=== PATIENT | female | born 1960 | race Caucasian/White ===

== ENCOUNTER 2017-10-08 11:12 | Inpatient (IN) | payer OTHER ==
[2017-10-08 13:51] LABS: ADD MAN DIFF? NO
[2017-10-08 13:55] LABS: WHITE BLOOD COUNT 4.2 10^3/ul (4.8-10.8)
[2017-10-08 13:55] LABS: BASOPHILS % 0.2 % (0.0-2.0); EOSINOPHILS # 0.2 10^3/ul (0.0-0.5); HEMATOCRIT 30.3 % (37.0-47.0); HEMOGLOBIN 9.9 g/dl (12.0-16.0); LYMPHOCYTES # 0.8 10^3/ul (0.8-2.9); LYMPHOCYTES % 18.9 % (15.0-51.0); MEAN CORPUSCULAR HGB CONC 32.7 g/dl (32.0-37.0); MEAN CORPUSCULAR VOLUME 104.1 fl (82.0-101.0); MEAN PLATELET VOLUME 10.9 fl (7.4-10.4); MONOCYTE # 0.5 10^3/ul (0.3-0.9); MONOCYTES % 10.6 % (0.0-11.0); NEUTROPHIL # 2.8 10^3/ul (1.6-7.5); NEUTROPHILS % 65.8 % (39.0-77.0); PLATELET COUNT 203 10^3/UL (140-415); RED BLOOD COUNT 2.91 10^6/ul (4.20-5.40); RED CELL DISTRIBUTION WIDTH 14.6 % (11.5-14.5)
[2017-10-08] MEDS: ONDANSETRON 4 MG INJ IV (13:59)
[2017-10-08] MEDS: PIPER-TAZO 3.375 GM IV (PMX) 100 ML IVPB (13:59)
[2017-10-08] MEDS: ACETAMINOPHEN 325 MG TAB PO (13:59)
[2017-10-08] MEDS ORDERED: ONDANSETRON 4 MG INJ IV (14:00)
[2017-10-08] MEDS: morphine 4 MG/ML VIAL IV (14:01)
[2017-10-08] MEDS: INSULIN LISPRO 100 UNIT/ML VIAL SC (14:06)
[2017-10-08 14:14] LABS: ALANINE AMINOTRANSFERASE 25 IU/L (13-69); ALBUMIN 3.6 g/dl (3.3-4.9); ALBUMIN/GLOBULIN RATIO 1.33; ALKALINE PHOSPHATASE 104 IU/L (42-121); ANION GAP 19 (8-16); ASPARTATE AMINO TRANSFERASE 21 IU/L (15-46); BILIRUBIN,INDIRECT 0.1 mg/dl (0-1.1); BILIRUBIN,TOTAL 0.1 mg/dl (0.2-1.3); BLOOD UREA NITROGEN 48 mg/dl (7-20); CALCIUM 8.4 mg/dl (8.4-10.2); CARBON DIOXIDE 30 mmol/L (21-31); CHLORIDE 99 mmol/L (97-110); CREATININE 5.12 mg/dl (0.44-1.00); GLUCOSE 260 mg/dl (70-220); POTASSIUM 5.3 mmol/L (3.5-5.1); SODIUM 143 mmol/L (135-144); TOTAL PROTEIN 6.3 g/dl (6.1-8.1)
[2017-10-08 14:14] LABS: LACTIC ACID 1.3 mmol/L (0.5-2.0)
[2017-10-08 14:18] LABS: INR 1.01; PROTIME 13.4 Sec (11.9-14.9)
[2017-10-08 14:19] LABS: PARTIAL THROMBOPLASTIN TIME 31.8 Sec (25.0-35.0)
[2017-10-08 14:27] LABS: TROPONIN-I < 0.012 ng/ml (0.00-0.12)
[2017-10-08] MEDS: VANCOMYCIN 1 GM (PMX) 250 ML IVPB (14:30)
[2017-10-08 17:05] LABS: ADD UMIC YES; UR ASCORBIC ACID NEGATIVE (NEGATIVE); UR BILIRUBIN (Dip) NEGATIVE (NEGATIVE); UR BLOOD (Dip) NEGATIVE (NEGATIVE); UR CLARITY CLEAR (CLEAR); UR COLOR YELLOW (YELLOW); UR GLUCOSE (Dip) 3+ mg/dL (NEGATIVE); UR KETONES (Dip) NEGATIVE (NEGATIVE); UR LEUKOCYTE ESTERASE (Dip) NEGATIVE Leu/ul (NEGATIVE); UR NITRITE (Dip) NEGATIVE (NEGATIVE); UR RBC 3 /HPF (0-5); UR SPECIFIC GRAVITY (Dip) 1.015 (1.003-1.030); UR SQUAMOUS EPITHELIAL CELL FEW /HPF (FEW); UR TOTAL PROTEIN (Dip) 3+ mg/dl (NEGATIVE); UR UROBILINOGEN (Dip) NEGATIVE (NEGATIVE); UR WBC 3 /HPF (0-5)
[2017-10-08] MEDS: HYDROCODONE/APAP (5/325) TAB PO (19:49)
[2017-10-08] MEDS: ALPRAZOLAM 0.25 MG TAB PO (19:52)
[2017-10-08] MEDS: GABAPENTIN 300 MG CAP PO (21:35)
[2017-10-08] MEDS: ATORVASTATIN 40 MG TAB PO (21:35)
[2017-10-08] MEDS: INSULIN GLARGINE [LANtus] 3 ML PEN SC (21:36)
[2017-10-08] MEDS ORDERED: VANCOMYCIN IV PER PHARMACY XX (22:00)
[2017-10-08] MEDS: VANCOMYCIN 1 GM in 250 ML IVPB (23:29)
[2017-10-08] MEDS: morphine 2 MG INJ IV (23:29)
[2017-10-09] MEDS: ACETAMINOPHEN 325 MG TAB PO (03:33)
[2017-10-09 05:58] LABS: ADD MAN DIFF? NO
[2017-10-09] MEDS: PANTOPRAZOLE (EC) 40 MG TAB PO (05:58)
[2017-10-09 06:01] LABS: WHITE BLOOD COUNT 3.8 10^3/ul (4.8-10.8)
[2017-10-09 06:01] LABS: BASOPHILS % 0.3 % (0.0-2.0); EOSINOPHILS # 0.2 10^3/ul (0.0-0.5); EOSINOPHILS % 4.7 % (0.0-7.0); HEMATOCRIT 27.6 % (37.0-47.0); HEMOGLOBIN 8.7 g/dl (12.0-16.0); LYMPHOCYTES # 0.9 10^3/ul (0.8-2.9); MEAN CORPUSCULAR HEMOGLOBIN 33.7 pg (29.0-33.0); MEAN CORPUSCULAR HGB CONC 31.5 g/dl (32.0-37.0); MONOCYTE # 0.4 10^3/ul (0.3-0.9); MONOCYTES % 11.5 % (0.0-11.0); NEUTROPHIL # 2.3 10^3/ul (1.6-7.5); NEUTROPHILS % 60.5 % (39.0-77.0); PLATELET COUNT 169 10^3/UL (140-415); RED BLOOD COUNT 2.58 10^6/ul (4.20-5.40); RED CELL DISTRIBUTION WIDTH 14.8 % (11.5-14.5)
[2017-10-09] MEDS: morphine 2 MG INJ IV ×3 (06:01→17:18)
[2017-10-09 06:39] LABS: ALANINE AMINOTRANSFERASE 28 IU/L (13-69); ALBUMIN 3.1 g/dl (3.3-4.9); ALBUMIN/GLOBULIN RATIO 1.14; ALKALINE PHOSPHATASE 76 IU/L (42-121); ANION GAP 17 (8-16); ASPARTATE AMINO TRANSFERASE 12 IU/L (15-46); BLOOD UREA NITROGEN 55 mg/dl (7-20); CALCIUM 7.9 mg/dl (8.4-10.2); CARBON DIOXIDE 29 mmol/L (21-31); CHLORIDE 102 mmol/L (97-110); CREATININE 5.95 mg/dl (0.44-1.00); GLUCOSE 233 mg/dl (70-220); POTASSIUM 5.4 mmol/L (3.5-5.1); SODIUM 143 mmol/L (135-144); TOTAL PROTEIN 5.8 g/dl (6.1-8.1)
[2017-10-09 07:18] LABS: HEMOGLOBIN A1C 7.2 % (0-5.9)
[2017-10-09] MEDS: SEVELAMER CARBONATE 0.8 GM PKT PO ×3 (08:47→17:29)
[2017-10-09] MEDS: LINAGLIPTIN 5 MG TABLET PO (08:47)
[2017-10-09] MEDS: GABAPENTIN 300 MG CAP PO ×2 (08:47→23:59)
[2017-10-09] MEDS: PIPER-TAZO 3.375 GM IV (PMX) 100 ML IVPB (08:48)
[2017-10-09] MEDS: FOLIC ACID 1 MG TAB PO (08:48)
[2017-10-09] MEDS: MULTIVIT/CA CARB/B CMPLX/FA TAB PO (08:48)
[2017-10-09] MEDS: CLOPIDOGREL 75 MG TAB PO (08:48)
[2017-10-09] MEDS: ALPRAZOLAM 0.25 MG TAB PO ×2 (10:06→23:59)
[2017-10-09] MEDS: INSULIN ASPART [NOVOLOG] 3 ML PEN SC ×5 (12:50→21:00)
[2017-10-09] MEDS ORDERED: DEXTROSE 50% 50 ML SYRINGE IV (13:00)
[2017-10-09] MEDS ORDERED: GLUCOSE GEL 15 GRAM TUBE BUCCAL (13:00)
[2017-10-09] MEDS ORDERED: GLUCOSE GEL 15 GRAM TUBE PO ×2 (13:00)
[2017-10-09] MEDS ORDERED: GLUCAGON 1 MG INJ IM (13:00)
[2017-10-09 15:25] LABS: HAAIG REFLEX REFLEX FILED
[2017-10-09 16:09] LABS: HEPATITIS B SURFACE ANTIGEN NEGATIVE (NEGATIVE)
[2017-10-09 16:27] LABS: HEPATITIS B CORE ANTIBODY NEGATIVE (NEGATIVE); HEPATITIS C VIRAL ANTIBODY NEGATIVE (NEGATIVE)
[2017-10-09] MEDS: PIPER-TAZO 2.25 GM (PMX) 50 ML IVPB ×2 (16:37→23:58)
[2017-10-09] MEDS: AMMONIUM LACTATE 12% 225 GM LOT TOP (16:42)
[2017-10-09] MEDS ORDERED: HEPARIN 1000 UNITS/ML 10 ML INJ CATHETER (20:00)
[2017-10-09] MEDS ORDERED: SODIUM CHLORIDE 0.9% 1L BAG IV (20:00)
[2017-10-09] MEDS: morphine LIQ (10 MG/5 ML) CUP PO ×2 (20:48→23:58)
[2017-10-09] MEDS: ATORVASTATIN 40 MG TAB PO (23:59)
[2017-10-10] MEDS: INSULIN GLARGINE [LANtus] 3 ML PEN SC ×2 (00:08→21:20)
[2017-10-10] MEDS: ACETAMINOPHEN 325 MG TAB PO (01:52)
[2017-10-10] MEDS: ACCU-CHEK XX (02:00)
[2017-10-10] MEDS: morphine LIQ (10 MG/5 ML) CUP PO ×3 (04:50→21:17)
[2017-10-10 05:06] LABS: ADD MAN DIFF? NO
[2017-10-10 05:13] LABS: BASOPHILS % 0.3 % (0.0-2.0); EOSINOPHILS # 0.2 10^3/ul (0.0-0.5); EOSINOPHILS % 5.2 % (0.0-7.0); HEMATOCRIT 28.5 % (37.0-47.0); HEMOGLOBIN 9.2 g/dl (12.0-16.0); LYMPHOCYTES # 0.8 10^3/ul (0.8-2.9); LYMPHOCYTES % 24.3 % (15.0-51.0); MEAN CORPUSCULAR HEMOGLOBIN 34.3 pg (29.0-33.0); MEAN CORPUSCULAR HGB CONC 32.3 g/dl (32.0-37.0); MEAN CORPUSCULAR VOLUME 106.3 fl (82.0-101.0); MEAN PLATELET VOLUME 10.4 fl (7.4-10.4); MONOCYTE # 0.3 10^3/ul (0.3-0.9); NEUTROPHILS % 59.9 % (39.0-77.0); PLATELET COUNT 186 10^3/UL (140-415); RED BLOOD COUNT 2.68 10^6/ul (4.20-5.40); RED CELL DISTRIBUTION WIDTH 14.6 % (11.5-14.5)
[2017-10-10 05:13] LABS: WHITE BLOOD COUNT 3.3 10^3/ul (4.8-10.8)
[2017-10-10 05:28] LABS: ANION GAP 18 (8-16); BLOOD UREA NITROGEN 61 mg/dl (7-20); CARBON DIOXIDE 28 mmol/L (21-31); CHLORIDE 102 mmol/L (97-110); CREATININE 6.12 mg/dl (0.44-1.00); GLUCOSE 92 mg/dl (70-220); POTASSIUM 5.4 mmol/L (3.5-5.1); SODIUM 143 mmol/L (135-144)
[2017-10-10 05:31] LABS: VANCOMYCIN,RANDOM 20.2 ug/ml
[2017-10-10] MEDS: PIPER-TAZO 2.25 GM (PMX) 50 ML IVPB ×3 (06:26→21:22)
[2017-10-10] MEDS: INSULIN ASPART [NOVOLOG] 3 ML PEN SC ×7 (08:00→21:00)
[2017-10-10] MEDS: PANTOPRAZOLE (EC) 40 MG TAB PO (08:51)
[2017-10-10] MEDS: LINAGLIPTIN 5 MG TABLET PO (08:51)
[2017-10-10] MEDS: AMMONIUM LACTATE 12% 225 GM LOT TOP (08:51)
[2017-10-10] MEDS: SEVELAMER CARBONATE 0.8 GM PKT PO (08:51)
[2017-10-10] MEDS: MULTIVIT/CA CARB/B CMPLX/FA TAB PO (08:52)
[2017-10-10] MEDS: FOLIC ACID 1 MG TAB PO (08:53)
[2017-10-10] MEDS: GABAPENTIN 300 MG CAP PO ×2 (08:53→21:18)
[2017-10-10] MEDS: CLOPIDOGREL 75 MG TAB PO (08:53)
[2017-10-10] MEDS ORDERED: MULTIVIT/CA CARB/B CMPLX/FA TAB PO (09:00)
[2017-10-10] MEDS: ALPRAZOLAM 0.25 MG TAB PO ×2 (10:35→22:42)
[2017-10-10] MEDS: FUROSEMIDE 40 MG INJ IV ×2 (12:29→18:02)
[2017-10-10] MEDS: SEVELAMER 800 MG TAB PO ×2 (12:30→17:22)
[2017-10-10] MEDS: ONDANSETRON 4 MG INJ IV (13:58)
[2017-10-10 14:43] LABS: GLUCOSE 57 mg/dl (70-220)
[2017-10-10] MEDS: DEXTROSE 50% 50 ML SYRINGE IV (15:05)
[2017-10-10] MEDS: NA POLYST SULFON 15 GM/60 ML BTL PO (16:28)
[2017-10-10] MEDS: ATORVASTATIN 40 MG TAB PO (21:18)
[2017-10-10] MEDS: ALBUTEROL HFA 8 GM INHALER INH (22:42)
[2017-10-10] MEDS: MENTHOL/METH SALICYLATE 30 GM OINT TOP (22:42)
[2017-10-11] MEDS: morphine LIQ (10 MG/5 ML) CUP PO ×4 (01:38→19:03)
[2017-10-11] MEDS: ALBUTEROL HFA 8 GM INHALER INH ×4 (01:39→22:18)
[2017-10-11] MEDS: ONDANSETRON 4 MG INJ IV ×2 (01:48→08:35)
[2017-10-11] MEDS: ACCU-CHEK XX (02:00)
[2017-10-11] MEDS: FUROSEMIDE 40 MG INJ IV ×2 (05:47→17:53)
[2017-10-11] MEDS: PANTOPRAZOLE (EC) 40 MG TAB PO (05:49)
[2017-10-11] MEDS: PIPER-TAZO 2.25 GM (PMX) 50 ML IVPB (05:49)
[2017-10-11 06:04] LABS: ADD MAN DIFF? NO
[2017-10-11 06:08] LABS: WHITE BLOOD COUNT 4.8 10^3/ul (4.8-10.8)
[2017-10-11 06:08] LABS: BASOPHILS % 0.2 % (0.0-2.0); EOSINOPHILS # 0.2 10^3/ul (0.0-0.5); EOSINOPHILS % 4.4 % (0.0-7.0); HEMATOCRIT 30.4 % (37.0-47.0); HEMOGLOBIN 9.5 g/dl (12.0-16.0); LYMPHOCYTES % 20.5 % (15.0-51.0); MEAN CORPUSCULAR HEMOGLOBIN 33.9 pg (29.0-33.0); MEAN CORPUSCULAR HGB CONC 31.3 g/dl (32.0-37.0); MEAN CORPUSCULAR VOLUME 108.6 fl (82.0-101.0); MEAN PLATELET VOLUME 10.8 fl (7.4-10.4); MONOCYTE # 0.5 10^3/ul (0.3-0.9); MONOCYTES % 10.4 % (0.0-11.0); NEUTROPHIL # 3.1 10^3/ul (1.6-7.5); NEUTROPHILS % 64.3 % (39.0-77.0); PLATELET COUNT 206 10^3/UL (140-415); RED CELL DISTRIBUTION WIDTH 14.5 % (11.5-14.5)
[2017-10-11 06:34] LABS: ANION GAP 24 (8-16); BLOOD UREA NITROGEN 80 mg/dl (7-20); CALCIUM 8.2 mg/dl (8.4-10.2); CARBON DIOXIDE 28 mmol/L (21-31); CHLORIDE 99 mmol/L (97-110); CREATININE 7.55 mg/dl (0.44-1.00); GLUCOSE 96 mg/dl (70-220); SODIUM 145 mmol/L (135-144)
[2017-10-11 07:20] LABS: POTASSIUM 5.5 mmol/L (3.5-5.1)
[2017-10-11] MEDS: INSULIN ASPART [NOVOLOG] 3 ML PEN SC ×7 (08:00→21:00)
[2017-10-11] MEDS: MULTIVIT/CA CARB/B CMPLX/FA TAB PO (08:38)
[2017-10-11] MEDS: SEVELAMER 800 MG TAB PO ×3 (08:38→17:52)
[2017-10-11] MEDS: LINAGLIPTIN 5 MG TABLET PO (08:38)
[2017-10-11] MEDS: GABAPENTIN 300 MG CAP PO ×2 (08:38→22:18)
[2017-10-11] MEDS: FOLIC ACID 1 MG TAB PO (08:38)
[2017-10-11] MEDS: DOCUSATE SODIUM 100 MG CAP PO (08:39)
[2017-10-11] MEDS: ACETAMINOPHEN 325 MG TAB PO (08:42)
[2017-10-11] MEDS: AMMONIUM LACTATE 12% 225 GM LOT TOP (08:45)
[2017-10-11] MEDS: CLOPIDOGREL 75 MG TAB PO (08:45)
[2017-10-11] MEDS ORDERED: VANCOMYCIN 1 GM 250 ML IVPB (12:00)
[2017-10-11] MEDS: NA POLYST SULFON 15 GM/60 ML BTL PR (12:31)
[2017-10-11] MEDS: NYSTATIN SUSP 5 ML CUP PO ×3 (12:31→21:00)
[2017-10-11] MEDS: AMPICILLIN/SULB 3 GM/NS (PMX) 100 ML IVPB (12:33)
[2017-10-11] MEDS: LIDOCAINE 1% (MDV) 20 ML INJ (13:51)
[2017-10-11] MEDS: ALPRAZOLAM 0.25 MG TAB PO (15:39)
[2017-10-11] MEDS: ATORVASTATIN 40 MG TAB PO (22:18)
[2017-10-11] MEDS: INSULIN GLARGINE [LANtus] 3 ML PEN SC (22:19)
[2017-10-11 22:27] LABS: POTASSIUM 5.6 mmol/L (3.5-5.1)
[2017-10-12] MEDS: NA POLYST SULFON 15 GM/60 ML BTL PO (00:30)
[2017-10-12] MEDS: morphine LIQ (10 MG/5 ML) CUP PO ×5 (00:56→20:32)
[2017-10-12] MEDS: ACCU-CHEK XX (02:00)
[2017-10-12] MEDS: ACETAMINOPHEN 325 MG TAB PO ×2 (02:39→09:08)
[2017-10-12] MEDS: ALBUTEROL HFA 8 GM INHALER INH ×4 (02:39→20:24)
[2017-10-12] MEDS: NYSTATIN SUSP 5 ML CUP PO ×5 (02:43→20:24)
[2017-10-12] MEDS: ALBUMIN HUMAN 25% 50 ML IV (04:49)
[2017-10-12] MEDS: PANTOPRAZOLE (EC) 40 MG TAB PO (05:17)
[2017-10-12] MEDS: FUROSEMIDE 40 MG INJ IV ×2 (05:20→17:55)
[2017-10-12] MEDS: AMPICILLIN/SULB 3 GM/NS (PMX) 100 ML IVPB ×3 (05:23→12:41)
[2017-10-12] MEDS: HEPARIN 1000 UNITS/ML 10 ML INJ CATHETER (05:30)
[2017-10-12 07:02] LABS: ANION GAP 18 (8-16); BLOOD UREA NITROGEN 38 mg/dl (7-20); CALCIUM 8.9 mg/dl (8.4-10.2); CARBON DIOXIDE 31 mmol/L (21-31); CHLORIDE 100 mmol/L (97-110); CREATININE 3.71 mg/dl (0.44-1.00); GLUCOSE 76 mg/dl (70-220); POTASSIUM 3.4 mmol/L (3.5-5.1); SODIUM 146 mmol/L (135-144)
[2017-10-12 07:28] LABS: ERYTHROCYTE SEDIMENTATION RATE 93 mm/Hr (0-30)
[2017-10-12] MEDS: INSULIN ASPART [NOVOLOG] 3 ML PEN SC ×7 (08:00→20:33)
[2017-10-12] MEDS: SEVELAMER 800 MG TAB PO ×3 (08:27→17:54)
[2017-10-12] MEDS: FOLIC ACID 1 MG TAB PO (09:06)
[2017-10-12] MEDS: LINAGLIPTIN 5 MG TABLET PO (09:07)
[2017-10-12] MEDS: MULTIVIT/CA CARB/B CMPLX/FA TAB PO (09:07)
[2017-10-12] MEDS: CLOPIDOGREL 75 MG TAB PO (09:07)
[2017-10-12] MEDS: GABAPENTIN 300 MG CAP PO ×2 (09:07→20:24)
[2017-10-12] MEDS: AMMONIUM LACTATE 12% 225 GM LOT TOP (10:19)
[2017-10-12] MEDS: ALPRAZOLAM 0.25 MG TAB PO (13:39)
[2017-10-12] MEDS: DOCUSATE SODIUM 100 MG CAP PO (16:27)
[2017-10-12] MEDS: POLYETHYLENE GLYCOL 17 GM PACKET PO (18:36)
[2017-10-12] MEDS: ATORVASTATIN 40 MG TAB PO (20:24)
[2017-10-12] MEDS: INSULIN GLARGINE [LANtus] 3 ML PEN SC (20:29)
[2017-10-13] MEDS: AMPICILLIN/SULB 3 GM/NS (PMX) 100 ML IVPB ×2 (00:12→12:25)
[2017-10-13] MEDS: ACCU-CHEK XX (02:00)
[2017-10-13] MEDS: ALBUTEROL HFA 8 GM INHALER INH ×4 (03:26→20:41)
[2017-10-13] MEDS: ALPRAZOLAM 0.25 MG TAB PO ×2 (03:27→18:41)
[2017-10-13] MEDS: POLYETHYLENE GLYCOL 17 GM PACKET PO (05:23)
[2017-10-13] MEDS: FUROSEMIDE 40 MG INJ IV ×2 (05:24→18:15)
[2017-10-13 06:14] LABS: ADD MAN DIFF? NO
[2017-10-13] MEDS: PANTOPRAZOLE (EC) 40 MG TAB PO (06:23)
[2017-10-13 06:27] LABS: BASOPHILS % 0.2 % (0.0-2.0); EOSINOPHILS # 0.2 10^3/ul (0.0-0.5); EOSINOPHILS % 4.1 % (0.0-7.0); HEMATOCRIT 23.8 % (37.0-47.0); HEMOGLOBIN 7.5 g/dl (12.0-16.0); LYMPHOCYTES # 1.1 10^3/ul (0.8-2.9); LYMPHOCYTES % 21.3 % (15.0-51.0); MEAN CORPUSCULAR HEMOGLOBIN 33.8 pg (29.0-33.0); MEAN CORPUSCULAR HGB CONC 31.5 g/dl (32.0-37.0); MEAN CORPUSCULAR VOLUME 107.2 fl (82.0-101.0); MEAN PLATELET VOLUME 10.7 fl (7.4-10.4); MONOCYTE # 0.7 10^3/ul (0.3-0.9); MONOCYTES % 13.8 % (0.0-11.0); NEUTROPHILS % 60.4 % (39.0-77.0); PLATELET COUNT 157 10^3/UL (140-415); RED BLOOD COUNT 2.22 10^6/ul (4.20-5.40); RED CELL DISTRIBUTION WIDTH 14.6 % (11.5-14.5)
[2017-10-13 06:27] LABS: WHITE BLOOD COUNT 4.9 10^3/ul (4.8-10.8)
[2017-10-13 07:06] LABS: ANION GAP 22 (8-16); BLOOD UREA NITROGEN 67 mg/dl (7-20); CALCIUM 7.6 mg/dl (8.4-10.2); CARBON DIOXIDE 26 mmol/L (21-31); CHLORIDE 98 mmol/L (97-110); GLUCOSE 75 mg/dl (70-220); POTASSIUM 4.8 mmol/L (3.5-5.1); SODIUM 141 mmol/L (135-144)
[2017-10-13] MEDS: INSULIN ASPART [NOVOLOG] 3 ML PEN SC ×7 (07:35→21:00)
[2017-10-13] MEDS: SEVELAMER 800 MG TAB PO ×3 (08:26→18:14)
[2017-10-13] MEDS: GABAPENTIN 300 MG CAP PO ×2 (08:26→20:41)
[2017-10-13] MEDS: LINAGLIPTIN 5 MG TABLET PO (08:27)
[2017-10-13] MEDS: MULTIVIT/CA CARB/B CMPLX/FA TAB PO (08:27)
[2017-10-13] MEDS: FOLIC ACID 1 MG TAB PO (08:27)
[2017-10-13] MEDS: NYSTATIN SUSP 5 ML CUP PO ×4 (08:29→20:41)
[2017-10-13] MEDS: CLOPIDOGREL 75 MG TAB PO (08:29)
[2017-10-13] MEDS: AMMONIUM LACTATE 12% 225 GM LOT TOP (08:32)
[2017-10-13] MEDS: SOD CHLORIDE 0.9% 250 ML IV* (09:00)
[2017-10-13] MEDS: LACTULOSE 30ML CUP PO (09:55)
[2017-10-13] MEDS: morphine LIQ (10 MG/5 ML) CUP PO ×2 (09:56→23:14)
[2017-10-13] MEDS: ACETAMINOPHEN 325 MG TAB PO (18:41)
[2017-10-13 20:55] LABS: HEMATOCRIT 26.8 % (37.0-47.0); HEMOGLOBIN 8.4 g/dl (12.0-16.0)
[2017-10-13] MEDS: ATORVASTATIN 40 MG TAB PO (22:33)
[2017-10-13] MEDS: EPOETIN 4000 UNITS/1 ML INJ (ESRD) SC (22:35)
[2017-10-13] MEDS: BISACODYL 10 MG SUPP PR (22:35)
[2017-10-13] MEDS: INSULIN GLARGINE [LANtus] 3 ML PEN SC (22:41)
[2017-10-14] MEDS: AMPICILLIN/SULB 3 GM/NS (PMX) 100 ML IVPB ×3 (00:16→23:54)
[2017-10-14] MEDS: ALPRAZOLAM 0.25 MG TAB PO ×2 (01:31→19:39)
[2017-10-14] MEDS: ACCU-CHEK XX (02:00)
[2017-10-14] MEDS: ALBUTEROL HFA 8 GM INHALER INH ×3 (02:14→13:53)
[2017-10-14] MEDS: morphine LIQ (10 MG/5 ML) CUP PO ×2 (04:51→09:59)
[2017-10-14 05:48] LABS: ADD MAN DIFF? NO
[2017-10-14 05:57] LABS: BASOPHILS % 0.2 % (0.0-2.0); EOSINOPHILS # 0.2 10^3/ul (0.0-0.5); EOSINOPHILS % 3.5 % (0.0-7.0); HEMATOCRIT 27.7 % (37.0-47.0); HEMOGLOBIN 8.9 g/dl (12.0-16.0); LYMPHOCYTES # 0.9 10^3/ul (0.8-2.9); LYMPHOCYTES % 20.6 % (15.0-51.0); MEAN CORPUSCULAR HEMOGLOBIN 34.2 pg (29.0-33.0); MEAN CORPUSCULAR HGB CONC 32.1 g/dl (32.0-37.0); MEAN CORPUSCULAR VOLUME 106.5 fl (82.0-101.0); MEAN PLATELET VOLUME 10.4 fl (7.4-10.4); MONOCYTE # 0.6 10^3/ul (0.3-0.9); MONOCYTES % 14.1 % (0.0-11.0); NEUTROPHIL # 2.7 10^3/ul (1.6-7.5); NEUTROPHILS % 61.4 % (39.0-77.0); PLATELET COUNT 201 10^3/UL (140-415); RED CELL DISTRIBUTION WIDTH 14.6 % (11.5-14.5)
[2017-10-14 05:57] LABS: WHITE BLOOD COUNT 4.3 10^3/ul (4.8-10.8)
[2017-10-14 06:28] LABS: ANION GAP 21 (8-16); BLOOD UREA NITROGEN 45 mg/dl (7-20); CALCIUM 7.9 mg/dl (8.4-10.2); CARBON DIOXIDE 29 mmol/L (21-31); CHLORIDE 98 mmol/L (97-110); CREATININE 5.35 mg/dl (0.44-1.00); GLUCOSE 108 mg/dl (70-220); POTASSIUM 4.6 mmol/L (3.5-5.1); SODIUM 143 mmol/L (135-144)
[2017-10-14] MEDS: PANTOPRAZOLE (EC) 40 MG TAB PO (06:34)
[2017-10-14] MEDS: FUROSEMIDE 40 MG INJ IV ×2 (06:34→18:43)
[2017-10-14] MEDS: INSULIN ASPART [NOVOLOG] 3 ML PEN SC ×7 (08:00→21:00)
[2017-10-14] MEDS: SEVELAMER 800 MG TAB PO ×3 (09:22→18:41)
[2017-10-14] MEDS: GABAPENTIN 300 MG CAP PO ×2 (09:25→23:33)
[2017-10-14] MEDS: CLOPIDOGREL 75 MG TAB PO (09:25)
[2017-10-14] MEDS: MULTIVIT/CA CARB/B CMPLX/FA TAB PO (09:25)
[2017-10-14] MEDS: FOLIC ACID 1 MG TAB PO (09:25)
[2017-10-14] MEDS: LINAGLIPTIN 5 MG TABLET PO (09:25)
[2017-10-14] MEDS: NYSTATIN SUSP 5 ML CUP PO ×4 (09:25→23:33)
[2017-10-14] MEDS: MENTHOL/METH SALICYLATE 30 GM OINT TOP (09:28)
[2017-10-14] MEDS: POLYETHYLENE GLYCOL 17 GM PACKET PO (09:52)
[2017-10-14] MEDS: AMMONIUM LACTATE 12% 225 GM LOT TOP (13:12)
[2017-10-14] MEDS ORDERED: VITAMIN A & D 5 GM OINT PACKET TOP ×2 (13:29→23:47)
[2017-10-14] MEDS ORDERED: SOD CHLORIDE 0.9% 1,000 ML IV (17:49)
[2017-10-14] MEDS ORDERED: HEPARIN 1000 UNITS/ML 10 ML INJ CATHETER (18:00)
[2017-10-14] MEDS ORDERED: ALBUMIN HUMAN 25% 50 ML IV (18:00)
[2017-10-14] MEDS: HEPARIN 1000 UNITS/ML 10 ML INJ CATHETER (23:17)
[2017-10-14] MEDS: ATORVASTATIN 40 MG TAB PO (23:33)
[2017-10-14] MEDS: EPOETIN 4000 UNITS/1 ML INJ (ESRD) SC (23:35)
[2017-10-14] MEDS: INSULIN GLARGINE [LANtus] 3 ML PEN SC (23:54)
[2017-10-15] MEDS: ALBUTEROL HFA 8 GM INHALER INH ×3 (00:13→20:00)
[2017-10-15] MEDS: morphine LIQ (10 MG/5 ML) CUP PO ×4 (00:56→18:53)
[2017-10-15] MEDS: ACCU-CHEK XX (02:00)
[2017-10-15] MEDS: FUROSEMIDE 40 MG INJ IV ×2 (06:06→18:03)
[2017-10-15] MEDS: PANTOPRAZOLE (EC) 40 MG TAB PO (06:07)
[2017-10-15] MEDS ORDERED: MIDAZOLAM 1 MG/ML 2 ML INJ (07:26)
[2017-10-15] MEDS ORDERED: HEPARIN 1000 UNITS/NS (A-LINE) 1,000 ML (07:26)
[2017-10-15] MEDS ORDERED: LIDOCAINE 1% (MDV) 20 ML INJ (07:26)
[2017-10-15] MEDS ORDERED: FENTAnyl 50 MCG/ML VIAL (07:26)
[2017-10-15] MEDS ORDERED: IODIXANOL LOCM 100 ML BTL (07:26)
[2017-10-15] MEDS: INSULIN ASPART [NOVOLOG] 3 ML PEN SC ×7 (07:35→21:00)
[2017-10-15] MEDS: SEVELAMER 800 MG TAB PO ×3 (07:35→17:58)
[2017-10-15 07:57] LABS: ADD MAN DIFF? NO
[2017-10-15 08:04] LABS: WHITE BLOOD COUNT 3.8 10^3/ul (4.8-10.8)
[2017-10-15 08:04] LABS: BASOPHILS % 0.3 % (0.0-2.0); EOSINOPHILS # 0.2 10^3/ul (0.0-0.5); EOSINOPHILS % 5.5 % (0.0-7.0); HEMATOCRIT 27.4 % (37.0-47.0); HEMOGLOBIN 8.7 g/dl (12.0-16.0); LYMPHOCYTES # 0.8 10^3/ul (0.8-2.9); LYMPHOCYTES % 19.8 % (15.0-51.0); MEAN CORPUSCULAR HEMOGLOBIN 34.1 pg (29.0-33.0); MEAN CORPUSCULAR HGB CONC 31.8 g/dl (32.0-37.0); MEAN CORPUSCULAR VOLUME 107.5 fl (82.0-101.0); MEAN PLATELET VOLUME 11.1 fl (7.4-10.4); MONOCYTE # 0.6 10^3/ul (0.3-0.9); MONOCYTES % 14.6 % (0.0-11.0); NEUTROPHIL # 2.3 10^3/ul (1.6-7.5); NEUTROPHILS % 59.8 % (39.0-77.0); PLATELET COUNT 222 10^3/UL (140-415); RED BLOOD COUNT 2.55 10^6/ul (4.20-5.40); RED CELL DISTRIBUTION WIDTH 14.6 % (11.5-14.5)
[2017-10-15 08:39] LABS: ANION GAP 24 (8-16); BLOOD UREA NITROGEN 71 mg/dl (7-20); CALCIUM 7.9 mg/dl (8.4-10.2); CARBON DIOXIDE 25 mmol/L (21-31); CHLORIDE 98 mmol/L (97-110); CREATININE 6.83 mg/dl (0.44-1.00); GLUCOSE 124 mg/dl (70-220); POTASSIUM 5.1 mmol/L (3.5-5.1); SODIUM 142 mmol/L (135-144)
[2017-10-15] MEDS: ALPRAZOLAM 0.25 MG TAB PO ×2 (08:46→15:03)
[2017-10-15] MEDS: CLOPIDOGREL 75 MG TAB PO (08:47)
[2017-10-15] MEDS: NYSTATIN SUSP 5 ML CUP PO ×4 (08:47→20:32)
[2017-10-15] MEDS: FOLIC ACID 1 MG TAB PO (08:47)
[2017-10-15] MEDS: LINAGLIPTIN 5 MG TABLET PO (08:47)
[2017-10-15] MEDS: GABAPENTIN 300 MG CAP PO ×2 (08:47→20:32)
[2017-10-15] MEDS: MULTIVIT/CA CARB/B CMPLX/FA TAB PO (08:47)
[2017-10-15] MEDS: AMMONIUM LACTATE 12% 225 GM LOT TOP (09:59)
[2017-10-15] MEDS: AMPICILLIN/SULB 3 GM/NS (PMX) 100 ML IVPB (12:08)
[2017-10-15] MEDS ORDERED: ALPRAZOLAM 0.25 MG TAB PO (12:30)
[2017-10-15] MEDS: MENTHOL/METH SALICYLATE 30 GM OINT TOP ×2 (13:00→20:32)
[2017-10-15] MEDS: ATORVASTATIN 40 MG TAB PO (20:32)
[2017-10-15] MEDS: INSULIN GLARGINE [LANtus] 3 ML PEN SC (20:33)
[2017-10-15] MEDS: HEPARIN 1000 UNITS/ML 10 ML INJ CATHETER (23:46)
[2017-10-16] MEDS: AMPICILLIN/SULB 3 GM/NS (PMX) 100 ML IVPB ×3 (01:07→23:57)
[2017-10-16] MEDS: morphine LIQ (10 MG/5 ML) CUP PO ×4 (01:08→22:55)
[2017-10-16] MEDS: ALBUTEROL HFA 8 GM INHALER INH ×3 (01:08→14:02)
[2017-10-16] MEDS: ACCU-CHEK XX (02:00)
[2017-10-16] MEDS: ALPRAZOLAM 0.25 MG TAB PO ×3 (03:31→20:11)
[2017-10-16] MEDS: FUROSEMIDE 40 MG INJ IV ×2 (06:28→17:02)
[2017-10-16] MEDS: SEVELAMER 800 MG TAB PO ×3 (07:35→17:02)
[2017-10-16] MEDS: INSULIN ASPART [NOVOLOG] 3 ML PEN SC ×8 (07:35→23:56)
[2017-10-16] MEDS: GABAPENTIN 300 MG CAP PO ×2 (09:00→20:17)
[2017-10-16] MEDS: LINAGLIPTIN 5 MG TABLET PO (09:00)
[2017-10-16] MEDS: FOLIC ACID 1 MG TAB PO (09:00)
[2017-10-16] MEDS: MULTIVIT/CA CARB/B CMPLX/FA TAB PO (09:00)
[2017-10-16] MEDS: CLOPIDOGREL 75 MG TAB PO (09:00)
[2017-10-16] MEDS: NYSTATIN SUSP 5 ML CUP PO ×4 (09:00→20:17)
[2017-10-16] MEDS: PANTOPRAZOLE (EC) 40 MG TAB PO (09:02)
[2017-10-16] MEDS: AMMONIUM LACTATE 12% 225 GM LOT TOP (11:38)
[2017-10-16] MEDS: MENTHOL/METH SALICYLATE 30 GM OINT TOP ×3 (11:39→20:18)
[2017-10-16 16:36] LABS: PROCALCITONIN 0.26 ng/mL (<0.10)
[2017-10-16] MEDS ORDERED: ALBUMIN HUMAN 25% 50 ML IV (18:30)
[2017-10-16] MEDS ORDERED: HEPARIN 1000 UNITS/ML 10 ML INJ CATHETER (18:30)
[2017-10-16] MEDS ORDERED: SODIUM CHLORIDE 0.9% 1L BAG IV (18:30)
[2017-10-16] MEDS: INSULIN GLARGINE [LANtus] 3 ML PEN SC (20:17)
[2017-10-16] MEDS: ATORVASTATIN 40 MG TAB PO (20:17)
[2017-10-16] MEDS: POLYETHYLENE GLYCOL 17 GM PACKET PO (22:05)
[2017-10-17] MEDS: ACCU-CHEK XX (02:00)
[2017-10-17] MEDS: ALBUTEROL HFA 8 GM INHALER INH ×4 (02:00→14:00)
[2017-10-17] MEDS: ALPRAZOLAM 0.25 MG TAB PO ×3 (02:24→15:18)
[2017-10-17] MEDS: morphine LIQ (10 MG/5 ML) CUP PO ×4 (03:41→20:12)
[2017-10-17 05:47] LABS: ADD MAN DIFF? NO
[2017-10-17] MEDS: FUROSEMIDE 40 MG INJ IV ×2 (05:48→17:53)
[2017-10-17 05:49] LABS: BASOPHILS % 0.5 % (0.0-2.0); EOSINOPHILS # 0.2 10^3/ul (0.0-0.5); EOSINOPHILS % 5.5 % (0.0-7.0); HEMATOCRIT 26.5 % (37.0-47.0); HEMOGLOBIN 8.4 g/dl (12.0-16.0); LYMPHOCYTES # 1.3 10^3/ul (0.8-2.9); LYMPHOCYTES % 33.2 % (15.0-51.0); MEAN CORPUSCULAR HEMOGLOBIN 34.1 pg (29.0-33.0); MEAN CORPUSCULAR HGB CONC 31.7 g/dl (32.0-37.0); MEAN CORPUSCULAR VOLUME 107.7 fl (82.0-101.0); MEAN PLATELET VOLUME 10.8 fl (7.4-10.4); MONOCYTE # 0.5 10^3/ul (0.3-0.9); MONOCYTES % 12.6 % (0.0-11.0); NEUTROPHIL # 1.9 10^3/ul (1.6-7.5); NEUTROPHILS % 47.9 % (39.0-77.0); NUCLEATED RED BLOOD CELLS% 0.8 /100WBC (0.0-0.0); PLATELET COUNT 240 10^3/UL (140-415); RED BLOOD COUNT 2.46 10^6/ul (4.20-5.40); RED CELL DISTRIBUTION WIDTH 14.9 % (11.5-14.5)
[2017-10-17] MEDS: INSULIN ASPART [NOVOLOG] 3 ML PEN SC ×7 (05:49→20:19)
[2017-10-17 06:35] LABS: ANION GAP 22 (8-16); BLOOD UREA NITROGEN 74 mg/dl (7-20); CARBON DIOXIDE 28 mmol/L (21-31); CHLORIDE 99 mmol/L (97-110); CREATININE 6.26 mg/dl (0.44-1.00); GLUCOSE 146 mg/dl (70-220); POTASSIUM 4.6 mmol/L (3.5-5.1); SODIUM 144 mmol/L (135-144)
[2017-10-17] MEDS ORDERED: CEFAZOLIN 1 GM INJ (07:00)
[2017-10-17] MEDS: MULTIVIT/CA CARB/B CMPLX/FA TAB PO (09:00)
[2017-10-17] MEDS: LINAGLIPTIN 5 MG TABLET PO (09:00)
[2017-10-17] MEDS: GABAPENTIN 300 MG CAP PO ×2 (09:00→20:13)
[2017-10-17] MEDS: CLOPIDOGREL 75 MG TAB PO (09:00)
[2017-10-17] MEDS: NYSTATIN SUSP 5 ML CUP PO ×4 (09:00→20:13)
[2017-10-17] MEDS: FOLIC ACID 1 MG TAB PO (09:00)
[2017-10-17] MEDS: PANTOPRAZOLE (EC) 40 MG TAB PO (09:36)
[2017-10-17] MEDS: MENTHOL/METH SALICYLATE 30 GM OINT TOP ×3 (09:37→20:23)
[2017-10-17] MEDS: AMMONIUM LACTATE 12% 225 GM LOT TOP (09:37)
[2017-10-17] MEDS: SEVELAMER 800 MG TAB PO ×3 (09:37→17:52)
[2017-10-17] MEDS: AMPICILLIN/SULB 3 GM/NS (PMX) 100 ML IVPB (12:00)
[2017-10-17] MEDS ORDERED: BUPIVACAINE 0.5% (SDV) 30 ML INJ (12:17)
[2017-10-17] MEDS ORDERED: POLYMYXIN/BACITRACIN 1L IRRIG (12:17)
[2017-10-17] MEDS ORDERED: IOHEXOL 300MG/ML 30 ML BTL (12:17)
[2017-10-17] MEDS ORDERED: FENTAnyl 50 MCG/ML VIAL ×2 (12:53→13:50)
[2017-10-17] MEDS ORDERED: PROPOFOL 20 ML (13:02)
[2017-10-17] MEDS ORDERED: hydrALAzine 20 MG INJ (13:04)
[2017-10-17] MEDS ORDERED: HEPARIN 1000 UNITS/ML 10 ML INJ (13:25)
[2017-10-17] MEDS: HEPARIN 1000 UNITS/ML 10 ML INJ (13:30)
[2017-10-17] MEDS: LIDOCAINE 1% (MPF) 30 ML INJ (13:36)
[2017-10-17] MEDS: FENTAnyl 50 MCG/ML VIAL IV ×2 (14:13→14:36)
[2017-10-17] MEDS: HYDROCODONE/APAP (5/325) TAB PO ×2 (15:18→22:06)
[2017-10-17] MEDS: ACETAMINOPHEN 325 MG TAB PO (16:47)
[2017-10-17] MEDS: ATORVASTATIN 40 MG TAB PO (20:13)
[2017-10-17] MEDS: INSULIN GLARGINE [LANtus] 3 ML PEN SC (20:19)
[2017-10-18] MEDS: HEPARIN 1000 UNITS/ML 10 ML INJ CATHETER (00:55)
[2017-10-18] MEDS: ACCU-CHEK XX (01:21)
[2017-10-18] MEDS: morphine LIQ (10 MG/5 ML) CUP PO ×5 (02:36→20:07)
[2017-10-18] MEDS: AMPICILLIN/SULB 3 GM/NS (PMX) 100 ML IVPB ×4 (02:37→23:47)
[2017-10-18] MEDS: EPOETIN 4000 UNITS/1 ML INJ (ESRD) SC (02:38)
[2017-10-18] MEDS: ALPRAZOLAM 0.25 MG TAB PO (04:02)
[2017-10-18] MEDS: POLYETHYLENE GLYCOL 17 GM PACKET PO ×2 (04:09→20:54)
[2017-10-18] MEDS: FUROSEMIDE 40 MG INJ IV ×2 (05:35→17:46)
[2017-10-18 05:52] LABS: ADD MAN DIFF? NO
[2017-10-18 05:59] LABS: BASOPHILS % 0.4 % (0.0-2.0); EOSINOPHILS # 0.2 10^3/ul (0.0-0.5); EOSINOPHILS % 3.7 % (0.0-7.0); HEMATOCRIT 30.3 % (37.0-47.0); HEMOGLOBIN 9.6 g/dl (12.0-16.0); LYMPHOCYTES # 0.7 10^3/ul (0.8-2.9); LYMPHOCYTES % 15.3 % (15.0-51.0); MEAN CORPUSCULAR HGB CONC 31.7 g/dl (32.0-37.0); MEAN CORPUSCULAR VOLUME 107.4 fl (82.0-101.0); MEAN PLATELET VOLUME 10.7 fl (7.4-10.4); MONOCYTE # 0.6 10^3/ul (0.3-0.9); MONOCYTES % 12.9 % (0.0-11.0); NEUTROPHIL # 3.1 10^3/ul (1.6-7.5); NEUTROPHILS % 67.5 % (39.0-77.0); PLATELET COUNT 281 10^3/UL (140-415); RED BLOOD COUNT 2.82 10^6/ul (4.20-5.40); RED CELL DISTRIBUTION WIDTH 14.9 % (11.5-14.5)
[2017-10-18 05:59] LABS: WHITE BLOOD COUNT 4.7 10^3/ul (4.8-10.8)
[2017-10-18 06:16] LABS: ANION GAP 18 (8-16); BLOOD UREA NITROGEN 44 mg/dl (7-20); CALCIUM 8.7 mg/dl (8.4-10.2); CARBON DIOXIDE 28 mmol/L (21-31); CHLORIDE 98 mmol/L (97-110); CREATININE 4.32 mg/dl (0.44-1.00); GLUCOSE 144 mg/dl (70-220); POTASSIUM 3.8 mmol/L (3.5-5.1); SODIUM 140 mmol/L (135-144)
[2017-10-18] MEDS: PANTOPRAZOLE (EC) 40 MG TAB PO (06:59)
[2017-10-18] MEDS: SEVELAMER 800 MG TAB PO ×3 (08:21→17:45)
[2017-10-18] MEDS: INSULIN ASPART [NOVOLOG] 3 ML PEN SC ×7 (08:22→21:00)
[2017-10-18] MEDS: NYSTATIN SUSP 5 ML CUP PO ×4 (08:24→20:52)
[2017-10-18] MEDS: MULTIVIT/CA CARB/B CMPLX/FA TAB PO (08:24)
[2017-10-18] MEDS: FOLIC ACID 1 MG TAB PO (08:25)
[2017-10-18] MEDS: HYDROCODONE/APAP (5/325) TAB PO ×2 (08:25→17:45)
[2017-10-18] MEDS: GABAPENTIN 300 MG CAP PO ×2 (08:25→20:52)
[2017-10-18] MEDS: CLOPIDOGREL 75 MG TAB PO (08:25)
[2017-10-18] MEDS: LINAGLIPTIN 5 MG TABLET PO (08:26)
[2017-10-18] MEDS: AMMONIUM LACTATE 12% 225 GM LOT TOP (08:30)
[2017-10-18] MEDS: MENTHOL/METH SALICYLATE 30 GM OINT TOP ×3 (08:31→20:55)
[2017-10-18] MEDS: LACTULOSE 30ML CUP PO (14:20)
[2017-10-18] MEDS: DOCUSATE SODIUM 100 MG CAP PO ×2 (14:24→23:47)
[2017-10-18] MEDS: DULOXETINE 30 MG CAP DR PO (20:52)
[2017-10-18] MEDS: ATORVASTATIN 40 MG TAB PO (20:52)
[2017-10-18] MEDS: BUSPIRONE 5 MG TAB PO (20:52)
[2017-10-18] MEDS: INSULIN GLARGINE [LANtus] 3 ML PEN SC (20:53)
[2017-10-18] MEDS: ALBUTEROL HFA 8 GM INHALER INH (22:10)
[2017-10-19] MEDS: ACCU-CHEK XX (02:00)
[2017-10-19] MEDS: ALBUTEROL HFA 8 GM INHALER INH ×4 (03:28→22:35)
[2017-10-19] MEDS: ACETAMINOPHEN 325 MG TAB PO (03:34)
[2017-10-19 06:49] LABS: ANION GAP 16 (8-16); BLOOD UREA NITROGEN 47 mg/dl (7-20); CALCIUM 8.7 mg/dl (8.4-10.2); CARBON DIOXIDE 29 mmol/L (21-31); CHLORIDE 101 mmol/L (97-110); GLUCOSE 89 mg/dl (70-220); POTASSIUM 3.7 mmol/L (3.5-5.1); SODIUM 142 mmol/L (135-144)
[2017-10-19] MEDS: PANTOPRAZOLE (EC) 40 MG TAB PO (07:30)
[2017-10-19] MEDS: SEVELAMER 800 MG TAB PO ×3 (07:35→17:25)
[2017-10-19] MEDS: HEPARIN 1000 UNITS/ML 10 ML INJ CATHETER (08:15)
[2017-10-19] MEDS: FUROSEMIDE 40 MG INJ IV ×2 (09:00→17:32)
[2017-10-19] MEDS: morphine LIQ (10 MG/5 ML) CUP PO ×3 (09:13→20:53)
[2017-10-19] MEDS: INSULIN ASPART [NOVOLOG] 3 ML PEN SC ×7 (09:14→20:57)
[2017-10-19] MEDS: NYSTATIN SUSP 5 ML CUP PO ×4 (09:24→20:53)
[2017-10-19] MEDS: DULOXETINE 30 MG CAP DR PO ×2 (09:24→20:53)
[2017-10-19] MEDS: FOLIC ACID 1 MG TAB PO (09:24)
[2017-10-19] MEDS: GABAPENTIN 300 MG CAP PO ×2 (09:24→20:53)
[2017-10-19] MEDS: BUSPIRONE 5 MG TAB PO ×2 (09:24→20:53)
[2017-10-19] MEDS: LINAGLIPTIN 5 MG TABLET PO (09:25)
[2017-10-19] MEDS: CLOPIDOGREL 75 MG TAB PO (09:25)
[2017-10-19] MEDS: MENTHOL/METH SALICYLATE 30 GM OINT TOP ×3 (09:37→21:01)
[2017-10-19] MEDS: MULTIVIT/CA CARB/B CMPLX/FA TAB PO (09:37)
[2017-10-19] MEDS: AMMONIUM LACTATE 12% 225 GM LOT TOP (09:37)
[2017-10-19] MEDS: ALPRAZOLAM 0.5 MG TAB PO ×2 (09:38→17:26)
[2017-10-19 09:46] LABS: ADD MAN DIFF? NO
[2017-10-19 09:55] LABS: WHITE BLOOD COUNT 3.8 10^3/ul (4.8-10.8)
[2017-10-19 09:55] LABS: BASOPHILS % 0.5 % (0.0-2.0); EOSINOPHILS # 0.2 10^3/ul (0.0-0.5); HEMATOCRIT 28.3 % (37.0-47.0); HEMOGLOBIN 9.1 g/dl (12.0-16.0); LYMPHOCYTES # 0.8 10^3/ul (0.8-2.9); LYMPHOCYTES % 21.9 % (15.0-51.0); MEAN CORPUSCULAR HGB CONC 32.2 g/dl (32.0-37.0); MEAN CORPUSCULAR VOLUME 105.6 fl (82.0-101.0); MEAN PLATELET VOLUME 10.8 fl (7.4-10.4); MONOCYTE # 0.4 10^3/ul (0.3-0.9); MONOCYTES % 10.6 % (0.0-11.0); NEUTROPHIL # 2.4 10^3/ul (1.6-7.5); PLATELET COUNT 249 10^3/UL (140-415); RED BLOOD COUNT 2.68 10^6/ul (4.20-5.40); RED CELL DISTRIBUTION WIDTH 15.3 % (11.5-14.5)
[2017-10-19] MEDS: HYDROCODONE/APAP (5/325) TAB PO ×2 (11:43→17:39)
[2017-10-19] MEDS: AMPICILLIN/SULB 3 GM/NS (PMX) 100 ML IVPB (13:11)
[2017-10-19 20:42] LABS: MONOTEST Negative (NEG)
[2017-10-19] MEDS: ATORVASTATIN 40 MG TAB PO (20:53)
[2017-10-19] MEDS: INSULIN GLARGINE [LANtus] 3 ML PEN SC (20:58)
[2017-10-20] MEDS: AMPICILLIN/SULB 3 GM/NS (PMX) 100 ML IVPB ×3 (01:09→23:46)
[2017-10-20] MEDS: ACCU-CHEK XX (02:00)
[2017-10-20] MEDS: ALBUTEROL HFA 8 GM INHALER INH ×4 (02:14→20:00)
[2017-10-20] MEDS: FUROSEMIDE 40 MG INJ IV ×2 (05:19→21:18)
[2017-10-20] MEDS: morphine LIQ (10 MG/5 ML) CUP PO ×3 (05:52→21:31)
[2017-10-20 06:19] LABS: ADD MAN DIFF? NO
[2017-10-20 06:25] LABS: BASOPHILS % 0.5 % (0.0-2.0); EOSINOPHILS # 0.2 10^3/ul (0.0-0.5); EOSINOPHILS % 4.7 % (0.0-7.0); HEMATOCRIT 26.2 % (37.0-47.0); HEMOGLOBIN 8.4 g/dl (12.0-16.0); LYMPHOCYTES % 26.7 % (15.0-51.0); MEAN CORPUSCULAR HEMOGLOBIN 34.7 pg (29.0-33.0); MEAN CORPUSCULAR HGB CONC 32.1 g/dl (32.0-37.0); MEAN CORPUSCULAR VOLUME 108.3 fl (82.0-101.0); MEAN PLATELET VOLUME 10.9 fl (7.4-10.4); MONOCYTE # 0.6 10^3/ul (0.3-0.9); MONOCYTES % 15.5 % (0.0-11.0); NEUTROPHILS % 52.3 % (39.0-77.0); PLATELET COUNT 239 10^3/UL (140-415); RED BLOOD COUNT 2.42 10^6/ul (4.20-5.40)
[2017-10-20 06:25] LABS: WHITE BLOOD COUNT 3.9 10^3/ul (4.8-10.8)
[2017-10-20 06:43] LABS: ANION GAP 19 (8-16); BLOOD UREA NITROGEN 45 mg/dl (7-20); CALCIUM 8.6 mg/dl (8.4-10.2); CARBON DIOXIDE 26 mmol/L (21-31); CHLORIDE 100 mmol/L (97-110); CREATININE 4.66 mg/dl (0.44-1.00); GLUCOSE 146 mg/dl (70-220); POTASSIUM 4.6 mmol/L (3.5-5.1); SODIUM 140 mmol/L (135-144)
[2017-10-20] MEDS: CLOPIDOGREL 75 MG TAB PO (08:00)
[2017-10-20] MEDS: GABAPENTIN 300 MG CAP PO ×2 (08:00→21:18)
[2017-10-20] MEDS: DULOXETINE 30 MG CAP DR PO ×2 (08:01→21:18)
[2017-10-20] MEDS: FOLIC ACID 1 MG TAB PO (08:01)
[2017-10-20] MEDS: DOCUSATE SODIUM 100 MG CAP PO (08:01)
[2017-10-20] MEDS: HYDROCODONE/APAP (5/325) TAB PO ×3 (08:01→23:46)
[2017-10-20] MEDS: INSULIN ASPART [NOVOLOG] 3 ML PEN SC ×7 (08:03→21:00)
[2017-10-20] MEDS: SEVELAMER 800 MG TAB PO ×3 (08:04→17:31)
[2017-10-20] MEDS: BUSPIRONE 5 MG TAB PO ×2 (08:06→21:18)
[2017-10-20] MEDS: MULTIVIT/CA CARB/B CMPLX/FA TAB PO (08:08)
[2017-10-20] MEDS: PANTOPRAZOLE (EC) 40 MG TAB PO (08:08)
[2017-10-20] MEDS: LINAGLIPTIN 5 MG TABLET PO (08:09)
[2017-10-20] MEDS: NYSTATIN SUSP 5 ML CUP PO ×4 (08:48→21:18)
[2017-10-20] MEDS: AMMONIUM LACTATE 12% 225 GM LOT TOP (08:48)
[2017-10-20] MEDS: MENTHOL/METH SALICYLATE 30 GM OINT TOP ×3 (08:49→21:32)
[2017-10-20] MEDS: ALPRAZOLAM 0.25 MG TAB PO (19:49)
[2017-10-20] MEDS: ATORVASTATIN 40 MG TAB PO (21:18)
[2017-10-20] MEDS: INSULIN GLARGINE [LANtus] 3 ML PEN SC (21:26)
[2017-10-21] MEDS: ACCU-CHEK XX (01:15)
[2017-10-21] MEDS: morphine LIQ (10 MG/5 ML) CUP PO ×4 (01:15→20:26)
[2017-10-21] MEDS: ALBUTEROL HFA 8 GM INHALER INH ×5 (02:00→20:34)
[2017-10-21] MEDS: POLYETHYLENE GLYCOL 17 GM PACKET PO (04:14)
[2017-10-21] MEDS: DOCUSATE SODIUM 100 MG CAP PO ×2 (04:15→22:32)
[2017-10-21 05:39] LABS: ADD MAN DIFF? NO
[2017-10-21 05:45] LABS: WHITE BLOOD COUNT 4.7 10^3/ul (4.8-10.8)
[2017-10-21 05:45] LABS: BASOPHILS % 0.2 % (0.0-2.0); EOSINOPHILS # 0.3 10^3/ul (0.0-0.5); EOSINOPHILS % 5.6 % (0.0-7.0); HEMATOCRIT 28.4 % (37.0-47.0); HEMOGLOBIN 8.9 g/dl (12.0-16.0); LYMPHOCYTES # 1.3 10^3/ul (0.8-2.9); LYMPHOCYTES % 27.7 % (15.0-51.0); MEAN CORPUSCULAR HEMOGLOBIN 33.7 pg (29.0-33.0); MEAN CORPUSCULAR HGB CONC 31.3 g/dl (32.0-37.0); MEAN CORPUSCULAR VOLUME 107.6 fl (82.0-101.0); MEAN PLATELET VOLUME 10.7 fl (7.4-10.4); MONOCYTE # 0.6 10^3/ul (0.3-0.9); MONOCYTES % 12.7 % (0.0-11.0); NEUTROPHIL # 2.5 10^3/ul (1.6-7.5); NEUTROPHILS % 53.6 % (39.0-77.0); PLATELET COUNT 254 10^3/UL (140-415); RED BLOOD COUNT 2.64 10^6/ul (4.20-5.40); RED CELL DISTRIBUTION WIDTH 14.7 % (11.5-14.5)
[2017-10-21] MEDS: FUROSEMIDE 40 MG INJ IV ×2 (05:45→17:33)
[2017-10-21] MEDS: HYDROCODONE/APAP (5/325) TAB PO ×3 (05:46→23:55)
[2017-10-21 05:58] LABS: ANION GAP 19 (8-16); BLOOD UREA NITROGEN 73 mg/dl (7-20); CALCIUM 8.8 mg/dl (8.4-10.2); CARBON DIOXIDE 27 mmol/L (21-31); CHLORIDE 101 mmol/L (97-110); CREATININE 6.59 mg/dl (0.44-1.00); GLUCOSE 151 mg/dl (70-220); SODIUM 142 mmol/L (135-144)
[2017-10-21] MEDS: PANTOPRAZOLE (EC) 40 MG TAB PO (08:20)
[2017-10-21] MEDS: SEVELAMER 800 MG TAB PO ×3 (08:20→17:32)
[2017-10-21] MEDS: INSULIN ASPART [NOVOLOG] 3 ML PEN SC ×7 (08:21→20:41)
[2017-10-21] MEDS: BUSPIRONE 5 MG TAB PO ×2 (08:22→20:33)
[2017-10-21] MEDS: GABAPENTIN 300 MG CAP PO ×2 (08:23→20:31)
[2017-10-21] MEDS: FOLIC ACID 1 MG TAB PO (08:23)
[2017-10-21] MEDS: LINAGLIPTIN 5 MG TABLET PO (08:23)
[2017-10-21] MEDS: NYSTATIN SUSP 5 ML CUP PO ×4 (08:23→20:31)
[2017-10-21] MEDS: CLOPIDOGREL 75 MG TAB PO (08:23)
[2017-10-21] MEDS: DULOXETINE 30 MG CAP DR PO ×2 (08:23→20:33)
[2017-10-21] MEDS: MULTIVIT/CA CARB/B CMPLX/FA TAB PO (08:23)
[2017-10-21] MEDS: AMMONIUM LACTATE 12% 225 GM LOT TOP (08:24)
[2017-10-21] MEDS: MENTHOL/METH SALICYLATE 30 GM OINT TOP ×3 (08:24→21:00)
[2017-10-21] MEDS: AMPICILLIN/SULB 3 GM/NS (PMX) 100 ML IVPB ×2 (12:14→23:54)
[2017-10-21] MEDS: OSELTAMIVIR 30 MG CAP PO ×2 (15:30→20:31)
[2017-10-21 16:07] LABS: NIL 0.03 IU/mL; QUANTIFERON(R)-TB GOLD NEGATIVE (NEGATIVE); TB-NIL 0.19 IU/mL
[2017-10-21] MEDS: HEPARIN 1000 UNITS/ML 10 ML INJ CATHETER (19:56)
[2017-10-21] MEDS: ATORVASTATIN 40 MG TAB PO (20:33)
[2017-10-21] MEDS: EPOETIN 4000 UNITS/1 ML INJ (ESRD) SC (20:38)
[2017-10-21] MEDS: INSULIN GLARGINE [LANtus] 3 ML PEN SC (20:40)
[2017-10-21] MEDS: ALPRAZOLAM 0.5 MG TAB PO (22:02)
[2017-10-21] MEDS: LACTULOSE 30ML CUP PO (22:32)
[2017-10-22] MEDS: morphine LIQ (10 MG/5 ML) CUP PO ×3 (01:28→20:58)
[2017-10-22] MEDS: ACCU-CHEK XX (01:37)
[2017-10-22] MEDS: ALBUTEROL HFA 8 GM INHALER INH ×4 (02:27→20:59)
[2017-10-22] MEDS: FUROSEMIDE 40 MG INJ IV ×2 (06:09→17:25)
[2017-10-22] MEDS: HYDROCODONE/APAP (5/325) TAB PO ×2 (06:09→13:51)
[2017-10-22 06:32] LABS: ADD MAN DIFF? NO
[2017-10-22 06:48] LABS: WHITE BLOOD COUNT 3.9 10^3/ul (4.8-10.8)
[2017-10-22 06:48] LABS: BASOPHILS % 0.5 % (0.0-2.0); EOSINOPHILS # 0.2 10^3/ul (0.0-0.5); EOSINOPHILS % 5.1 % (0.0-7.0); HEMATOCRIT 27.2 % (37.0-47.0); HEMOGLOBIN 8.6 g/dl (12.0-16.0); LYMPHOCYTES % 25.9 % (15.0-51.0); MEAN CORPUSCULAR HEMOGLOBIN 33.6 pg (29.0-33.0); MEAN CORPUSCULAR HGB CONC 31.6 g/dl (32.0-37.0); MEAN CORPUSCULAR VOLUME 106.3 fl (82.0-101.0); MEAN PLATELET VOLUME 10.7 fl (7.4-10.4); MONOCYTE # 0.6 10^3/ul (0.3-0.9); MONOCYTES % 15.5 % (0.0-11.0); NEUTROPHIL # 2.1 10^3/ul (1.6-7.5); NEUTROPHILS % 52.7 % (39.0-77.0); PLATELET COUNT 244 10^3/UL (140-415); RED BLOOD COUNT 2.56 10^6/ul (4.20-5.40)
[2017-10-22] MEDS: ALPRAZOLAM 0.5 MG TAB PO (06:49)
[2017-10-22 07:00] LABS: ANION GAP 18 (8-16); BLOOD UREA NITROGEN 51 mg/dl (7-20); CALCIUM 8.6 mg/dl (8.4-10.2); CARBON DIOXIDE 30 mmol/L (21-31); CHLORIDE 102 mmol/L (97-110); GLUCOSE 115 mg/dl (70-220); POTASSIUM 4.5 mmol/L (3.5-5.1); SODIUM 145 mmol/L (135-144)
[2017-10-22] MEDS: SEVELAMER 800 MG TAB PO ×3 (08:00→17:55)
[2017-10-22] MEDS: INSULIN ASPART [NOVOLOG] 3 ML PEN SC ×7 (08:42→21:00)
[2017-10-22] MEDS: NYSTATIN SUSP 5 ML CUP PO ×4 (09:00→20:57)
[2017-10-22] MEDS ORDERED: ALBUMIN HUMAN 25% 50 ML IV (10:30)
[2017-10-22] MEDS ORDERED: OSELTAMIVIR 30 MG CAP PO (12:00)
[2017-10-22] MEDS: HEPARIN 1000 UNITS/ML 10 ML INJ CATHETER (13:04)
[2017-10-22] MEDS: LINAGLIPTIN 5 MG TABLET PO (13:43)
[2017-10-22] MEDS: PANTOPRAZOLE (EC) 40 MG TAB PO (13:43)
[2017-10-22] MEDS: FOLIC ACID 1 MG TAB PO (13:43)
[2017-10-22] MEDS: BUSPIRONE 5 MG TAB PO ×2 (13:43→20:58)
[2017-10-22] MEDS: GABAPENTIN 300 MG CAP PO ×2 (13:43→20:58)
[2017-10-22] MEDS: MULTIVIT/CA CARB/B CMPLX/FA TAB PO (13:44)
[2017-10-22] MEDS: CLOPIDOGREL 75 MG TAB PO (13:44)
[2017-10-22] MEDS: DULOXETINE 30 MG CAP DR PO ×2 (13:44→20:58)
[2017-10-22] MEDS: AMPICILLIN/SULB 3 GM/NS (PMX) 100 ML IVPB (13:51)
[2017-10-22] MEDS: AMMONIUM LACTATE 12% 225 GM LOT TOP (13:52)
[2017-10-22] MEDS: MENTHOL/METH SALICYLATE 30 GM OINT TOP ×3 (13:52→21:00)
[2017-10-22] MEDS: OSELTAMIVIR 30 MG CAP PO (17:05)
[2017-10-22] MEDS: EPOETIN 4000 UNITS/1 ML INJ (ESRD) SC (17:06)
[2017-10-22] MEDS: DOCUSATE SODIUM 100 MG CAP PO (17:24)
[2017-10-22] MEDS: POLYETHYLENE GLYCOL 17 GM PACKET PO (17:24)
[2017-10-22] MEDS: ATORVASTATIN 40 MG TAB PO (20:58)
[2017-10-22] MEDS: INSULIN GLARGINE [LANtus] 3 ML PEN SC (21:02)
[2017-10-22] MEDS: LACTULOSE 30ML CUP PO (21:53)
[2017-10-23] MEDS: AMPICILLIN/SULB 3 GM/NS (PMX) 100 ML IVPB ×2 (00:35→13:19)
[2017-10-23] MEDS: ALBUTEROL HFA 8 GM INHALER INH ×3 (02:00→13:22)
[2017-10-23] MEDS: ACCU-CHEK XX (02:00)
[2017-10-23] MEDS: morphine LIQ (10 MG/5 ML) CUP PO ×2 (05:43→10:14)
[2017-10-23] MEDS: FUROSEMIDE 40 MG INJ IV (05:43)
[2017-10-23] MEDS: ALPRAZOLAM 0.5 MG TAB PO (07:43)
[2017-10-23] MEDS: SEVELAMER 800 MG TAB PO ×3 (08:17→16:46)
[2017-10-23] MEDS: PANTOPRAZOLE (EC) 40 MG TAB PO (08:17)
[2017-10-23] MEDS: BUSPIRONE 5 MG TAB PO (08:19)
[2017-10-23] MEDS: NYSTATIN SUSP 5 ML CUP PO ×4 (08:20→16:08)
[2017-10-23] MEDS: LINAGLIPTIN 5 MG TABLET PO (08:20)
[2017-10-23] MEDS: CLOPIDOGREL 75 MG TAB PO (08:20)
[2017-10-23] MEDS: GABAPENTIN 300 MG CAP PO (08:20)
[2017-10-23] MEDS: FOLIC ACID 1 MG TAB PO (08:20)
[2017-10-23] MEDS: MULTIVIT/CA CARB/B CMPLX/FA TAB PO (08:20)
[2017-10-23] MEDS: AMMONIUM LACTATE 12% 225 GM LOT TOP (08:21)
[2017-10-23] MEDS: MENTHOL/METH SALICYLATE 30 GM OINT TOP ×2 (08:21→12:09)
[2017-10-23] MEDS: DULOXETINE 30 MG CAP DR PO (08:22)
[2017-10-23] MEDS: INSULIN ASPART [NOVOLOG] 3 ML PEN SC ×4 (08:25→12:08)
[2017-10-23] MEDS: HYDROCODONE/APAP (5/325) TAB PO ×2 (08:58→15:23)
[2017-10-23] MEDS: HEPARIN 1000 UNITS/ML 10 ML INJ CATHETER (12:01)
[2017-10-23] MEDS: EPOETIN 4000 UNITS/1 ML INJ (ESRD) SC (17:03)
[2017-10-24] MEDS ORDERED: OSELTAMIVIR 30 MG CAP PO (09:00)
== END 2017-10-23 15:25 | disposition home health service (06) | DRG 638 ==
LOC: E/R 11:12 → PP2 13:37
PROC: 5A1D70Z Performance of Urinary Filtration, Intermittent, Less than 6 Hours Per Day (ICD-10-PCS; principal; 2017-10-17 12:54)
PROC: 05HN33Z Insertion of Infusion Device into Left Internal Jugular Vein, Percutaneous Approach (ICD-10-PCS; 2017-10-17 12:54)
PROC: B5141ZA Fluoroscopy of Left Jugular Veins using Low Osmolar Contrast, Guidance (ICD-10-PCS; 2017-10-17 12:54)
PROC: 0JH63XZ Insertion of Tunneled Vascular Access Device into Chest Subcutaneous Tissue and Fascia, Percutaneous Approach (ICD-10-PCS; 2017-10-17 12:54)
PROC: 0J2SXYZ Change Other Device in Head and Neck Subcutaneous Tissue and Fascia, External Approach (ICD-10-PCS; 2017-10-17 12:54)
DX: E11.621 Type 2 diabetes mellitus with foot ulcer (principal); T82.41XA Breakdown (mechanical) of vascular dialysis catheter, initial encounter; Z68.41 Body mass index [BMI] 40.0-44.9, adult; I13.2 Hypertensive heart and chronic kidney disease with heart failure and with stage 5 chronic kidney disease, or end stage renal disease; M86.9 Osteomyelitis, unspecified; L97.319 Non-pressure chronic ulcer of right ankle with unspecified severity; N18.6 End stage renal disease; E11.22 Type 2 diabetes mellitus with diabetic chronic kidney disease; E11.65 Type 2 diabetes mellitus with hyperglycemia; Z99.2 Dependence on renal dialysis; E87.5 Hyperkalemia; E11.51 Type 2 diabetes mellitus with diabetic peripheral angiopathy without gangrene; E66.9 Obesity, unspecified; Z79.4 Long term (current) use of insulin; Z95.828 Presence of other vascular implants and grafts; E78.00 Pure hypercholesterolemia, unspecified; D63.8 Anemia in other chronic diseases classified elsewhere; E78.5 Hyperlipidemia, unspecified; L03.031 Cellulitis of right toe; B95.2 Enterococcus as the cause of diseases classified elsewhere; R13.10 Dysphagia, unspecified; E09.22 Drug or chemical induced diabetes mellitus with diabetic chronic kidney disease; I50.9 Heart failure, unspecified; E66.01 Morbid (severe) obesity due to excess calories; Z87.440 Personal history of urinary (tract) infections; R09.02 Hypoxemia; R60.0 Localized edema; I70.235 Atherosclerosis of native arteries of right leg with ulceration of other part of foot; L97.519 Non-pressure chronic ulcer of other part of right foot with unspecified severity; I70.202 Unspecified atherosclerosis of native arteries of extremities, left leg; F41.9 Anxiety disorder, unspecified; E11.69 Type 2 diabetes mellitus with other specified complication; G89.29 Other chronic pain; M54.5 Low back pain; E11.622 Type 2 diabetes mellitus with other skin ulcer; M51.36 Other intervertebral disc degeneration, lumbar region; M54.30 Sciatica, unspecified side
CPT/HCPCS: 36415; 36556; 70490; 71045; 73630; 73718; 76942; 80048; 80053; 80202; 81001; 82947; 82962; 83036; 83605; 84132; 84145; 84484; 85014; 85018; 85025; 85610; 85651; 85730; 86308; 86480; 86704; 86709; 86803; 86850; 86900; 86901; 86920; 87040; 87086; 87275; 87276; 87279; 87280; 87340; 87400; 87880; 88300; 90935; 92526; 92610; 93005; 93931; 93970; 96365; 96366; 96367; 96372; 96375; 99285-25

== ENCOUNTER 2018-11-30 14:31 | Inpatient (IN) | payer OTHER ==
[2018-11-30 15:52] LABS: ADD MAN DIFF? NO
[2018-11-30 15:57] LABS: ABNORMAL IP MESSAGE 1; BASOPHILS % 0.2 % (0.0-2.0); EOSINOPHILS # 0.1 10^3/ul (0.0-0.5); EOSINOPHILS % 1.1 % (0.0-7.0); HEMATOCRIT 35.7 % (37.0-47.0); HEMOGLOBIN 11.1 g/dl (12.0-16.0); LYMPHOCYTES # 0.4 10^3/ul (0.8-2.9); LYMPHOCYTES % 5.5 % (15.0-51.0); MEAN CORPUSCULAR HEMOGLOBIN 34.7 pg (29.0-33.0); MEAN CORPUSCULAR HGB CONC 31.1 g/dl (32.0-37.0); MEAN CORPUSCULAR VOLUME 111.6 fl (82.0-101.0); MEAN PLATELET VOLUME 10.9 fl (7.4-10.4); MONOCYTE # 0.6 10^3/ul (0.3-0.9); MONOCYTES % 9.5 % (0.0-11.0); NEUTROPHIL # 5.5 10^3/ul (1.6-7.5); NEUTROPHILS % 83.4 % (39.0-77.0); PLATELET COUNT 149 10^3/UL (140-415); RED CELL DISTRIBUTION WIDTH 16.8 % (11.5-14.5)
[2018-11-30 15:57] LABS: WHITE BLOOD COUNT 6.5 10^3/ul (4.8-10.8)
[2018-11-30] MEDS: ACETAMINOPHEN 325 MG TAB PO (16:03)
[2018-11-30 16:17] LABS: INR 1.21; PROTIME 15.4 Sec (11.9-14.9); PT RATIO 1.2
[2018-11-30 16:18] LABS: PARTIAL THROMBOPLASTIN TIME 37.1 Sec (23.0-35.0)
[2018-11-30 16:24] LABS: ALANINE AMINOTRANSFERASE 10 IU/L (13-69); ALBUMIN 4.3 g/dl (3.3-4.9); ALBUMIN/GLOBULIN RATIO 1.16; ALKALINE PHOSPHATASE 116 IU/L (42-121); ANION GAP 16 (5-13); ASPARTATE AMINO TRANSFERASE 20 IU/L (15-46); BILIRUBIN,INDIRECT 0.1 mg/dl (0-1.1); BILIRUBIN,TOTAL 0.1 mg/dl (0.2-1.3); BLOOD UREA NITROGEN 66 mg/dl (7-20); CALCIUM 9.6 mg/dl (8.4-10.2); CARBON DIOXIDE 25 mmol/L (21-31); CHLORIDE 100 mmol/L (97-110); CREATININE 7.96 mg/dl (0.44-1.00); Estimated GFR 5 mL/min (>60); GLUCOSE 100 mg/dl (70-220); SODIUM 141 mmol/L (135-144)
[2018-11-30] MEDS: ONDANSETRON 4 MG INJ IV (17:15)
[2018-11-30] MEDS: morphine 2 MG INJ IV (17:16)
[2018-11-30] MEDS ORDERED: DEXTROSE 50% 50 ML SYRINGE IV (17:30)
[2018-11-30] MEDS: INSULIN REGULAR, HUMAN 100 UNIT/1 ML 3ML VIAL IVP (17:41)
[2018-11-30] MEDS: CEFEPIME 1GM/50 ML (PMX) 50 ML IVPB (17:42)
[2018-11-30] MEDS: SODIUM POLYSTYRENE 15 GM KIT (POWDER + SORBITOL) PO (17:43)
[2018-11-30] MEDS: ALBUTEROL 0.5% (NEB) 2.5 MG/0.5 ML AMP INH (17:44)
[2018-11-30] MEDS: IPRATROPIUM (NEB) 0.5 MG/2.5 ML AMP HHN (17:59)
[2018-11-30] MEDS: LEVALBUTEROL (NEB) 1.25 MG/0.5 ML AMP HHN (17:59)
[2018-11-30] MEDS: VANCOMYCIN 1 GM (PMX) 250 ML IVPB (19:34)
[2018-11-30] MEDS: ASPIRIN 81 MG TAB PO (19:34)
[2018-11-30 19:46] LABS: LACTIC ACID 1.4 mmol/L (0.5-2.0)
[2018-11-30] MEDS ORDERED: VANCOMYCIN IV PER PHARMACY XX (23:30)
[2018-12-01] MEDS: GUAIFENESIN/CODEINE 5ML CUP PO ×3 (00:24→19:35)
[2018-12-01] MEDS: VANCOMYCIN 1 GM 250 ML IVPB (00:24)
[2018-12-01] MEDS: HYDROCODONE/APAP (5/325) TAB PO (00:42)
[2018-12-01] MEDS: INSULIN ASPART [NOVOLOG] 3 ML PEN SC ×5 (01:00→21:07)
[2018-12-01] MEDS ORDERED: INSULIN ASPART [NOVOLOG] 3 ML PEN SC ×2 (01:00→07:00)
[2018-12-01] MEDS: ACCU-CHEK XX (01:31)
[2018-12-01] MEDS: morphine 2 MG INJ IV (04:28)
[2018-12-01] MEDS ORDERED: DEXTROSE 50% 50 ML SYRINGE IV (05:30)
[2018-12-01] MEDS ORDERED: GLUCAGON 1 MG INJ IM (05:30)
[2018-12-01] MEDS ORDERED: GLUCOSE GEL 15 GRAM TUBE PO ×2 (05:30)
[2018-12-01 06:16] LABS: ADD MAN DIFF? NO
[2018-12-01] MEDS: PANTOPRAZOLE (EC) 40 MG TAB PO (06:16)
[2018-12-01 06:18] LABS: WHITE BLOOD COUNT 4.9 10^3/ul (4.8-10.8)
[2018-12-01 06:18] LABS: BASOPHILS % 0.2 % (0.0-2.0); EOSINOPHILS # 0.1 10^3/ul (0.0-0.5); EOSINOPHILS % 2.2 % (0.0-7.0); HEMATOCRIT 36.1 % (37.0-47.0); LYMPHOCYTES # 0.6 10^3/ul (0.8-2.9); LYMPHOCYTES % 12.2 % (15.0-51.0); MEAN CORPUSCULAR HEMOGLOBIN 34.2 pg (29.0-33.0); MEAN CORPUSCULAR HGB CONC 30.5 g/dl (32.0-37.0); MEAN CORPUSCULAR VOLUME 112.1 fl (82.0-101.0); MEAN PLATELET VOLUME 11.4 fl (7.4-10.4); MONOCYTE # 0.5 10^3/ul (0.3-0.9); MONOCYTES % 10.1 % (0.0-11.0); NEUTROPHIL # 3.7 10^3/ul (1.6-7.5); NEUTROPHILS % 75.1 % (39.0-77.0); PLATELET COUNT 173 10^3/UL (140-415); RED BLOOD COUNT 3.22 10^6/ul (4.20-5.40)
[2018-12-01 06:48] LABS: ANION GAP 17 (5-13); BLOOD UREA NITROGEN 68 mg/dl (7-20); CALCIUM 8.7 mg/dl (8.4-10.2); CARBON DIOXIDE 25 mmol/L (21-31); CHLORIDE 99 mmol/L (97-110); CREATININE 8.63 mg/dl (0.44-1.00); Estimated GFR 5 mL/min (>60); GLUCOSE 111 mg/dl (70-220); POTASSIUM 5.3 mmol/L (3.5-5.1); SODIUM 141 mmol/L (135-144)
[2018-12-01] MEDS: DEXTROSE 50% 50 ML SYRINGE IV (07:47)
[2018-12-01] MEDS: SEVELAMER CARBONATE 0.8 GM PKT PO ×3 (08:23→17:33)
[2018-12-01] MEDS: GABAPENTIN 300 MG CAP PO ×3 (08:24→20:16)
[2018-12-01] MEDS: METHOCARBAMOL 500 MG TAB PO (08:24)
[2018-12-01] MEDS: CEFEPIME 1GM/50 ML (PMX) 50 ML IVPB (08:24)
[2018-12-01] MEDS: BUSPIRONE 10 MG TAB PO ×3 (08:24→20:16)
[2018-12-01] MEDS: METOPROLOL 25 MG TAB PO ×2 (08:25→20:17)
[2018-12-01] MEDS: DILTIAZEM (CD) 120 MG CAP PO (08:25)
[2018-12-01] MEDS: APIXABAN 5 MG TABLET PO ×2 (08:25→20:16)
[2018-12-01] MEDS: FUROSEMIDE 20 MG TAB PO (08:25)
[2018-12-01] MEDS: ACETAMINOPHEN 325 MG TAB PO ×2 (11:45→20:26)
[2018-12-01 17:24] LABS: PROCALCITONIN 0.91 ng/mL (0.00-0.10)
[2018-12-01 22:32] LABS: HEPATITIS B SURFACE ANTIGEN NEGATIVE (NEGATIVE)
[2018-12-02] MEDS: HEPARIN 1000 UNITS/ML 10 ML INJ CATHETER (00:41)
[2018-12-02] MEDS: ACCU-CHEK XX (01:56)
[2018-12-02] MEDS: GUAIFENESIN/CODEINE 5ML CUP PO ×3 (05:01→23:06)
[2018-12-02] MEDS: morphine 2 MG INJ IV (05:01)
[2018-12-02] MEDS: ACETAMINOPHEN 325 MG TAB PO ×2 (05:28→09:35)
[2018-12-02 05:31] LABS: ADD MAN DIFF? NO
[2018-12-02 05:34] LABS: ABNORMAL IP MESSAGE 1; BASOPHILS % 0.5 % (0.0-2.0); EOSINOPHILS # 0.1 10^3/ul (0.0-0.5); EOSINOPHILS % 1.4 % (0.0-7.0); HEMATOCRIT 31.6 % (37.0-47.0); HEMOGLOBIN 9.7 g/dl (12.0-16.0); LYMPHOCYTES # 0.5 10^3/ul (0.8-2.9); LYMPHOCYTES % 11.3 % (15.0-51.0); MEAN CORPUSCULAR HEMOGLOBIN 33.8 pg (29.0-33.0); MEAN CORPUSCULAR HGB CONC 30.7 g/dl (32.0-37.0); MEAN CORPUSCULAR VOLUME 110.1 fl (82.0-101.0); MEAN PLATELET VOLUME 10.8 fl (7.4-10.4); MONOCYTE # 0.7 10^3/ul (0.3-0.9); MONOCYTES % 15.3 % (0.0-11.0); NEUTROPHILS % 71.3 % (39.0-77.0); PLATELET COUNT 168 10^3/UL (140-415); RED BLOOD COUNT 2.87 10^6/ul (4.20-5.40); RED CELL DISTRIBUTION WIDTH 16.8 % (11.5-14.5)
[2018-12-02 05:34] LABS: WHITE BLOOD COUNT 4.3 10^3/ul (4.8-10.8)
[2018-12-02 05:45] LABS: POSITIVE DIFF @See below
[2018-12-02 05:49] LABS: HEMOGLOBIN A1C 6.5 % (0-5.9)
[2018-12-02 06:02] LABS: ANION GAP 14 (5-13); BLOOD UREA NITROGEN 48 mg/dl (7-20); CALCIUM 8.6 mg/dl (8.4-10.2); CARBON DIOXIDE 26 mmol/L (21-31); CHLORIDE 100 mmol/L (97-110); CREATININE 6.76 mg/dl (0.44-1.00); Estimated GFR 6 mL/min (>60); GLUCOSE 153 mg/dl (70-220); POTASSIUM 4.9 mmol/L (3.5-5.1); SODIUM 140 mmol/L (135-144)
[2018-12-02] MEDS: PANTOPRAZOLE (EC) 40 MG TAB PO (06:19)
[2018-12-02] MEDS: INSULIN ASPART [NOVOLOG] 3 ML PEN SC ×7 (07:49→21:00)
[2018-12-02] MEDS: INSULIN GLARGINE [LANTus] (100 UNITS/ML) SYG SC ×2 (07:51→11:50)
[2018-12-02] MEDS: SEVELAMER CARBONATE 0.8 GM PKT PO ×3 (08:04→18:08)
[2018-12-02] MEDS: BUSPIRONE 10 MG TAB PO ×3 (08:05→21:27)
[2018-12-02] MEDS: METOPROLOL 25 MG TAB PO ×2 (08:05→21:00)
[2018-12-02] MEDS: GABAPENTIN 300 MG CAP PO ×3 (08:05→21:27)
[2018-12-02] MEDS: AZITHROMYCIN 500 MG TAB PO (08:05)
[2018-12-02] MEDS: METHOCARBAMOL 500 MG TAB PO (08:05)
[2018-12-02] MEDS: APIXABAN 5 MG TABLET PO ×2 (08:06→21:27)
[2018-12-02] MEDS: DILTIAZEM (CD) 120 MG CAP PO (08:06)
[2018-12-02] MEDS: CEFEPIME 1GM/50 ML (PMX) 50 ML IVPB (08:07)
[2018-12-02] MEDS: FUROSEMIDE 20 MG TAB PO (09:35)
[2018-12-02] MEDS ORDERED: traMADol 50 MG TAB PO (13:30)
[2018-12-02] MEDS: HYDROCODONE/APAP (5/325) TAB PO (19:27)
[2018-12-02] MEDS: DICLOFENAC SODIUM 1% GEL 100 GM TUBE TP (21:27)
[2018-12-03] MEDS: ACCU-CHEK XX ×2 (02:00→02:04)
[2018-12-03 05:34] LABS: ADD MAN DIFF? NO
[2018-12-03 05:40] LABS: BASOPHILS % 0.3 % (0.0-2.0); EOSINOPHILS # 0.2 10^3/ul (0.0-0.5); EOSINOPHILS % 4.6 % (0.0-7.0); HEMATOCRIT 29.5 % (37.0-47.0); LYMPHOCYTES # 0.8 10^3/ul (0.8-2.9); LYMPHOCYTES % 22.6 % (15.0-51.0); MEAN CORPUSCULAR HEMOGLOBIN 33.6 pg (29.0-33.0); MEAN CORPUSCULAR HGB CONC 30.5 g/dl (32.0-37.0); MEAN CORPUSCULAR VOLUME 110.1 fl (82.0-101.0); MEAN PLATELET VOLUME 11.2 fl (7.4-10.4); MONOCYTE # 0.6 10^3/ul (0.3-0.9); MONOCYTES % 18.3 % (0.0-11.0); NEUTROPHIL # 1.9 10^3/ul (1.6-7.5); NEUTROPHILS % 53.9 % (39.0-77.0); PLATELET COUNT 196 10^3/UL (140-415); RED BLOOD COUNT 2.68 10^6/ul (4.20-5.40); RED CELL DISTRIBUTION WIDTH 16.7 % (11.5-14.5)
[2018-12-03 05:40] LABS: WHITE BLOOD COUNT 3.5 10^3/ul (4.8-10.8)
[2018-12-03 05:57] LABS: CHOLESTEROL 136 mg/dl (100-200)
[2018-12-03 05:57] LABS: CHOL/HDL RATIO 4.6 RATIO; CREATINE KINASE 43 IU/L (23-200); HDL CHOLESTEROL 29 mg/dl (35-98); LDL CHOLESTEROL,CALCULATED 60 mg/dl; TRIGLYCERIDES 234 mg/dl (0-149)
[2018-12-03 06:00] LABS: VANCOMYCIN,RANDOM 15.9 ug/ml
[2018-12-03] MEDS: PANTOPRAZOLE (EC) 40 MG TAB PO (06:07)
[2018-12-03 06:26] LABS: ANION GAP 15 (5-13); BLOOD UREA NITROGEN 69 mg/dl (7-20); CALCIUM 8.3 mg/dl (8.4-10.2); CARBON DIOXIDE 25 mmol/L (21-31); CHLORIDE 99 mmol/L (97-110); CREATININE 8.11 mg/dl (0.44-1.00); Estimated GFR 5 mL/min (>60); GLUCOSE 128 mg/dl (70-220); POTASSIUM 5.2 mmol/L (3.5-5.1); SODIUM 139 mmol/L (135-144)
[2018-12-03] MEDS: INSULIN ASPART [NOVOLOG] 3 ML PEN SC ×7 (07:52→20:39)
[2018-12-03] MEDS: INSULIN GLARGINE [LANTus] (100 UNITS/ML) SYG SC (07:52)
[2018-12-03] MEDS: CEFEPIME 1GM/50 ML (PMX) 50 ML IVPB (09:00)
[2018-12-03] MEDS: METHOCARBAMOL 500 MG TAB PO (09:00)
[2018-12-03] MEDS: GABAPENTIN 300 MG CAP PO ×3 (09:01→20:37)
[2018-12-03] MEDS: BUSPIRONE 10 MG TAB PO ×3 (09:01→20:37)
[2018-12-03] MEDS: SEVELAMER CARBONATE 0.8 GM PKT PO ×3 (09:01→16:43)
[2018-12-03] MEDS: DICLOFENAC SODIUM 1% GEL 100 GM TUBE TP ×2 (09:01→20:46)
[2018-12-03] MEDS: DOCUSATE SODIUM 100 MG CAP PO (09:01)
[2018-12-03] MEDS: APIXABAN 5 MG TABLET PO ×2 (09:01→20:36)
[2018-12-03] MEDS: AZITHROMYCIN 500 MG TAB PO (09:01)
[2018-12-03] MEDS: ACETAMINOPHEN 325 MG TAB PO (12:09)
[2018-12-03] MEDS: GUAIFENESIN/CODEINE 5ML CUP PO ×2 (12:46→20:46)
[2018-12-03] MEDS: HEPARIN 1000 UNITS/ML 10 ML INJ CATHETER (14:01)
[2018-12-03] MEDS: HYDROCODONE/APAP (5/325) TAB PO ×2 (14:48→20:44)
[2018-12-03] MEDS: DILTIAZEM (CD) 120 MG CAP PO (16:41)
[2018-12-03] MEDS: FUROSEMIDE 20 MG TAB PO (16:42)
[2018-12-03] MEDS: METOPROLOL 25 MG TAB PO ×2 (16:42→20:37)
[2018-12-03] MEDS: ISOSORBIDE DINITRATE 10 MG TAB PO (20:36)
[2018-12-03] MEDS: VANCOMYCIN 1 GM 250 ML IVPB (21:47)
[2018-12-03] MEDS: LORAZEPAM 2 MG INJ IV (22:50)
[2018-12-04] MEDS: ACCU-CHEK XX (02:00)
[2018-12-04] MEDS: GUAIFENESIN/CODEINE 5ML CUP PO (06:15)
[2018-12-04] MEDS: ACETAMINOPHEN 325 MG TAB PO (06:15)
[2018-12-04] MEDS: INSULIN ASPART [NOVOLOG] 3 ML PEN SC ×7 (08:00→21:00)
[2018-12-04 08:02] LABS: PROCALCITONIN 2.71 ng/mL (0.00-0.10)
[2018-12-04] MEDS: SEVELAMER CARBONATE 0.8 GM PKT PO ×3 (08:06→17:26)
[2018-12-04] MEDS: CEFEPIME 1GM/50 ML (PMX) 50 ML IVPB (08:06)
[2018-12-04] MEDS: APIXABAN 5 MG TABLET PO ×2 (08:07→21:58)
[2018-12-04] MEDS: DOCUSATE SODIUM 100 MG CAP PO (08:07)
[2018-12-04] MEDS: METOPROLOL 25 MG TAB PO ×2 (08:08→21:57)
[2018-12-04] MEDS: GABAPENTIN 300 MG CAP PO ×3 (08:08→21:57)
[2018-12-04] MEDS: METHOCARBAMOL 500 MG TAB PO (08:08)
[2018-12-04] MEDS: FUROSEMIDE 20 MG TAB PO (08:08)
[2018-12-04] MEDS: AZITHROMYCIN 500 MG TAB PO (08:08)
[2018-12-04] MEDS: BUSPIRONE 10 MG TAB PO ×3 (08:08→21:57)
[2018-12-04] MEDS: PANTOPRAZOLE (EC) 40 MG TAB PO (08:09)
[2018-12-04] MEDS: ISOSORBIDE DINITRATE 10 MG TAB PO ×3 (08:09→21:57)
[2018-12-04] MEDS: DILTIAZEM (CD) 120 MG CAP PO (08:09)
[2018-12-04] MEDS: DICLOFENAC SODIUM 1% GEL 100 GM TUBE TP ×2 (08:12→21:59)
[2018-12-04] MEDS: INSULIN GLARGINE [LANTus] (100 UNITS/ML) SYG SC (08:20)
[2018-12-04 10:42] LABS: ADD MAN DIFF? NO
[2018-12-04 10:46] LABS: BASOPHILS % 0.6 % (0.0-2.0); EOSINOPHILS # 0.2 10^3/ul (0.0-0.5); HEMATOCRIT 30.5 % (37.0-47.0); HEMOGLOBIN 9.3 g/dl (12.0-16.0); LYMPHOCYTES # 0.8 10^3/ul (0.8-2.9); LYMPHOCYTES % 23.4 % (15.0-51.0); MEAN CORPUSCULAR HEMOGLOBIN 33.8 pg (29.0-33.0); MEAN CORPUSCULAR HGB CONC 30.5 g/dl (32.0-37.0); MEAN CORPUSCULAR VOLUME 110.9 fl (82.0-101.0); MEAN PLATELET VOLUME 11.6 fl (7.4-10.4); MONOCYTE # 0.7 10^3/ul (0.3-0.9); MONOCYTES % 22.5 % (0.0-11.0); NEUTROPHIL # 1.5 10^3/ul (1.6-7.5); NEUTROPHILS % 48.2 % (39.0-77.0); PLATELET COUNT 235 10^3/UL (140-415); RED BLOOD COUNT 2.75 10^6/ul (4.20-5.40); RED CELL DISTRIBUTION WIDTH 17.1 % (11.5-14.5)
[2018-12-04 10:46] LABS: WHITE BLOOD COUNT 3.2 10^3/ul (4.8-10.8)
[2018-12-04 10:52] LABS: ANION GAP 10 (5-13); BLOOD UREA NITROGEN 44 mg/dl (7-20); CALCIUM 8.4 mg/dl (8.4-10.2); CARBON DIOXIDE 29 mmol/L (21-31); CHLORIDE 100 mmol/L (97-110); CREATININE 5.71 mg/dl (0.44-1.00); Estimated GFR 8 mL/min (>60); GLUCOSE 160 mg/dl (70-220); POTASSIUM 4.7 mmol/L (3.5-5.1); SODIUM 139 mmol/L (135-144)
[2018-12-04] MEDS: LORAZEPAM 2 MG INJ IV (12:22)
[2018-12-04] MEDS: DEXTROSE 50% 50 ML SYRINGE IV (21:34)
[2018-12-04 23:58] LABS: GLUCOSE, FASTING 117 mg/dl (70-110)
[2018-12-05] MEDS: ACCU-CHEK XX (02:12)
[2018-12-05] MEDS: GUAIFENESIN/CODEINE 5ML CUP PO (02:23)
[2018-12-05 05:19] LABS: ADD MAN DIFF? NO
[2018-12-05 05:20] LABS: WHITE BLOOD COUNT 3.9 10^3/ul (4.8-10.8)
[2018-12-05 05:20] LABS: ABNORMAL IP MESSAGE 1; BASOPHILS % 0.3 % (0.0-2.0); EOSINOPHILS # 0.1 10^3/ul (0.0-0.5); EOSINOPHILS % 3.6 % (0.0-7.0); HEMATOCRIT 29.5 % (37.0-47.0); HEMOGLOBIN 9.2 g/dl (12.0-16.0); LYMPHOCYTES # 0.6 10^3/ul (0.8-2.9); LYMPHOCYTES % 15.2 % (15.0-51.0); MEAN CORPUSCULAR HEMOGLOBIN 34.3 pg (29.0-33.0); MEAN CORPUSCULAR HGB CONC 31.2 g/dl (32.0-37.0); MEAN CORPUSCULAR VOLUME 110.1 fl (82.0-101.0); MEAN PLATELET VOLUME 10.8 fl (7.4-10.4); MONOCYTE # 0.6 10^3/ul (0.3-0.9); MONOCYTES % 16.5 % (0.0-11.0); NEUTROPHIL # 2.5 10^3/ul (1.6-7.5); NEUTROPHILS % 63.9 % (39.0-77.0); PLATELET COUNT 252 10^3/UL (140-415); RED BLOOD COUNT 2.68 10^6/ul (4.20-5.40); RED CELL DISTRIBUTION WIDTH 16.8 % (11.5-14.5)
[2018-12-05 05:36] LABS: POSITIVE DIFF @See below
[2018-12-05 05:56] LABS: ANION GAP 14 (5-13); BLOOD UREA NITROGEN 54 mg/dl (7-20); CALCIUM 8.4 mg/dl (8.4-10.2); CARBON DIOXIDE 26 mmol/L (21-31); CHLORIDE 98 mmol/L (97-110); CREATININE 7.16 mg/dl (0.44-1.00); Estimated GFR 6 mL/min (>60); GLUCOSE 144 mg/dl (70-220); POTASSIUM 5.3 mmol/L (3.5-5.1); SODIUM 138 mmol/L (135-144)
[2018-12-05] MEDS: PANTOPRAZOLE (EC) 40 MG TAB PO (06:06)
[2018-12-05] MEDS: INSULIN ASPART [NOVOLOG] 3 ML PEN SC ×7 (07:00→20:43)
[2018-12-05] MEDS: GABAPENTIN 300 MG CAP PO ×3 (08:52→22:41)
[2018-12-05] MEDS: AZITHROMYCIN 500 MG TAB PO (08:52)
[2018-12-05] MEDS: SEVELAMER CARBONATE 0.8 GM PKT PO ×3 (08:52→17:54)
[2018-12-05] MEDS: DOCUSATE SODIUM 100 MG CAP PO (08:52)
[2018-12-05] MEDS: METHOCARBAMOL 500 MG TAB PO (08:52)
[2018-12-05] MEDS: APIXABAN 5 MG TABLET PO ×2 (08:52→22:41)
[2018-12-05] MEDS: CEFEPIME 1GM/50 ML (PMX) 50 ML IVPB (08:53)
[2018-12-05] MEDS: BUSPIRONE 10 MG TAB PO ×3 (08:53→22:41)
[2018-12-05] MEDS: DICLOFENAC SODIUM 1% GEL 100 GM TUBE TP ×2 (08:56→20:44)
[2018-12-05] MEDS: ISOSORBIDE DINITRATE 10 MG TAB PO ×3 (09:00→23:40)
[2018-12-05] MEDS: INSULIN GLARGINE [LANTus] (100 UNITS/ML) SYG SC (09:22)
[2018-12-05] MEDS: HYDROCODONE/APAP (5/325) TAB PO ×2 (09:59→18:07)
[2018-12-05] MEDS: FUROSEMIDE 20 MG TAB PO (10:00)
[2018-12-05] MEDS: DILTIAZEM (CD) 120 MG CAP PO (10:00)
[2018-12-05] MEDS: METOPROLOL 25 MG TAB PO ×2 (10:00→23:40)
[2018-12-05] MEDS: LORAZEPAM 2 MG INJ IV (12:09)
[2018-12-05] MEDS: NA POLYST SULFON 15 GM/60 ML BTL PO (13:00)
[2018-12-05] MEDS: SENNA TAB PO (13:04)
[2018-12-05] MEDS: GLUCOSE GEL 15 GRAM TUBE BUCCAL ×2 (18:50→19:18)
[2018-12-05] MEDS: HEPARIN 1000 UNITS/ML 10 ML INJ CATHETER (23:35)
[2018-12-06] MEDS: ACETAMINOPHEN 325 MG TAB PO ×2 (00:15→20:27)
[2018-12-06] MEDS: LORAZEPAM 2 MG INJ IV ×2 (01:04→09:21)
[2018-12-06] MEDS: ACCU-CHEK XX (01:48)
[2018-12-06] MEDS: PANTOPRAZOLE (EC) 40 MG TAB PO (06:42)
[2018-12-06] MEDS: GUAIFENESIN/CODEINE 5ML CUP PO ×2 (06:51→15:36)
[2018-12-06 07:09] LABS: VANCOMYCIN,RANDOM 16.5 ug/ml
[2018-12-06] MEDS: GABAPENTIN 300 MG CAP PO ×3 (08:26→20:17)
[2018-12-06] MEDS: BUSPIRONE 10 MG TAB PO ×3 (08:26→20:19)
[2018-12-06] MEDS: APIXABAN 5 MG TABLET PO ×2 (08:26→20:17)
[2018-12-06] MEDS: DOCUSATE SODIUM 100 MG CAP PO (08:26)
[2018-12-06] MEDS: AZITHROMYCIN 500 MG TAB PO (08:26)
[2018-12-06] MEDS: SEVELAMER CARBONATE 0.8 GM PKT PO ×3 (08:26→17:49)
[2018-12-06] MEDS: METOPROLOL 25 MG TAB PO ×2 (08:27→20:18)
[2018-12-06] MEDS: FUROSEMIDE 20 MG TAB PO (08:27)
[2018-12-06] MEDS: DILTIAZEM (CD) 120 MG CAP PO (08:28)
[2018-12-06] MEDS: ISOSORBIDE DINITRATE 10 MG TAB PO ×3 (08:28→20:18)
[2018-12-06] MEDS: DICLOFENAC SODIUM 1% GEL 100 GM TUBE TP ×2 (08:28→20:19)
[2018-12-06] MEDS: CEFEPIME 1GM/50 ML (PMX) 50 ML IVPB (08:28)
[2018-12-06] MEDS: INSULIN GLARGINE [LANTus] (100 UNITS/ML) SYG SC (08:32)
[2018-12-06] MEDS: INSULIN ASPART [NOVOLOG] 3 ML PEN SC ×7 (08:39→20:18)
[2018-12-06] MEDS: VANCOMYCIN 1 GM 250 ML IVPB (12:11)
[2018-12-06] MEDS ORDERED: IPRATROPIUM (NEB) 0.5 MG/2.5 ML AMP HHN (14:00)
[2018-12-06] MEDS ORDERED: ALBUTEROL 0.083% (NEB) 2.5 MG/3 ML AMP HHN (14:00)
[2018-12-06] MEDS: HYDROCODONE/APAP (5/325) TAB PO (15:36)
[2018-12-07] MEDS: GUAIFENESIN/CODEINE 5ML CUP PO (02:16)
[2018-12-07] MEDS: ACETAMINOPHEN 325 MG TAB PO (02:21)
[2018-12-07] MEDS: ACCU-CHEK XX (02:30)
[2018-12-07 06:33] LABS: PHOSPHORUS 7.8 mg/dl (2.5-4.9)
[2018-12-07] MEDS: PANTOPRAZOLE (EC) 40 MG TAB PO (06:55)
[2018-12-07] MEDS: INSULIN ASPART [NOVOLOG] 3 ML PEN SC ×7 (08:13→21:16)
[2018-12-07] MEDS: INSULIN GLARGINE [LANTus] (100 UNITS/ML) SYG SC (08:13)
[2018-12-07] MEDS: APIXABAN 5 MG TABLET PO ×2 (08:20→20:53)
[2018-12-07] MEDS: GABAPENTIN 300 MG CAP PO ×3 (08:21→20:52)
[2018-12-07] MEDS: FUROSEMIDE 20 MG TAB PO (08:21)
[2018-12-07] MEDS: DOCUSATE SODIUM 100 MG CAP PO (08:21)
[2018-12-07] MEDS: DILTIAZEM (CD) 120 MG CAP PO (08:21)
[2018-12-07] MEDS: CEFEPIME 1GM/50 ML (PMX) 50 ML IVPB (08:22)
[2018-12-07] MEDS: SEVELAMER CARBONATE 0.8 GM PKT PO ×3 (08:22→17:00)
[2018-12-07] MEDS: BUSPIRONE 10 MG TAB PO ×3 (08:22→20:53)
[2018-12-07] MEDS: DICLOFENAC SODIUM 1% GEL 100 GM TUBE TP ×2 (08:23→22:08)
[2018-12-07] MEDS: ISOSORBIDE DINITRATE 10 MG TAB PO ×3 (08:24→20:53)
[2018-12-07] MEDS: METOPROLOL 25 MG TAB PO ×2 (08:35→20:52)
[2018-12-07] MEDS: HYDROCODONE/APAP (5/325) TAB PO ×2 (09:47→20:52)
[2018-12-07] MEDS: MULTIVIT/CA CARB/B CMPLX/FA TAB PO (12:07)
[2018-12-07] MEDS: LORAZEPAM 2 MG INJ IV ×2 (13:57→20:53)
[2018-12-07] MEDS: HEPARIN 1000 UNITS/ML 10 ML INJ CATHETER (14:01)
[2018-12-07] MEDS: SENNA TAB PO (16:58)
[2018-12-08] MEDS: HYDROCORTISONE 0.5% 28.35 GM CR TOP (00:53)
[2018-12-08] MEDS: ACCU-CHEK XX (02:11)
[2018-12-08] MEDS: GUAIFENESIN/CODEINE 5ML CUP PO ×2 (04:55→20:00)
[2018-12-08] MEDS: PANTOPRAZOLE (EC) 40 MG TAB PO (06:13)
[2018-12-08 06:44] LABS: ANION GAP 15 (5-13); BLOOD UREA NITROGEN 46 mg/dl (7-20); CALCIUM 8.9 mg/dl (8.4-10.2); CARBON DIOXIDE 25 mmol/L (21-31); CHLORIDE 98 mmol/L (97-110); CREATININE 5.56 mg/dl (0.44-1.00); Estimated GFR 8 mL/min (>60); GLUCOSE 188 mg/dl (70-220); POTASSIUM 4.7 mmol/L (3.5-5.1); SODIUM 138 mmol/L (135-144)
[2018-12-08] MEDS: INSULIN GLARGINE [LANTus] (100 UNITS/ML) SYG SC (07:35)
[2018-12-08] MEDS: INSULIN ASPART [NOVOLOG] 3 ML PEN SC ×7 (07:36→20:00)
[2018-12-08] MEDS: SEVELAMER CARBONATE 0.8 GM PKT PO ×3 (07:37→17:20)
[2018-12-08] MEDS: DOCUSATE SODIUM 100 MG CAP PO (08:40)
[2018-12-08] MEDS: MULTIVIT/CA CARB/B CMPLX/FA TAB PO (08:41)
[2018-12-08] MEDS: APIXABAN 5 MG TABLET PO ×2 (08:41→20:00)
[2018-12-08] MEDS: GABAPENTIN 300 MG CAP PO ×3 (08:42→20:00)
[2018-12-08] MEDS: METOPROLOL 25 MG TAB PO ×2 (08:42→21:00)
[2018-12-08] MEDS: BUSPIRONE 10 MG TAB PO ×3 (08:43→20:00)
[2018-12-08] MEDS: ISOSORBIDE DINITRATE 10 MG TAB PO ×3 (08:44→21:00)
[2018-12-08] MEDS: DILTIAZEM (CD) 120 MG CAP PO (08:44)
[2018-12-08] MEDS: DICLOFENAC SODIUM 1% GEL 100 GM TUBE TP ×2 (08:45→23:15)
[2018-12-08] MEDS: FUROSEMIDE 20 MG TAB PO (08:46)
[2018-12-08] MEDS: HYDROCODONE/APAP (5/325) TAB PO ×2 (08:48→17:20)
[2018-12-08] MEDS: CEFEPIME 1GM/50 ML (PMX) 50 ML IVPB (08:48)
[2018-12-08 10:10] LABS: HEMOGLOBIN 10.1 g/dl (12.0-16.0)
[2018-12-08] MEDS: LORAZEPAM 2 MG INJ IV (10:44)
[2018-12-08] MEDS: EPOETIN ALFA-EPBX (ESRD) 4,000 UNIT/ML VIAL SC (16:43)
[2018-12-08] MEDS: HEPARIN 1000 UNITS/ML 10 ML INJ CATHETER (22:11)
[2018-12-08] MEDS: SENNA TAB PO (22:13)
[2018-12-08] MEDS: ZOLPIDEM 5 MG TAB PO (22:13)
[2018-12-09] MEDS: LORAZEPAM 2 MG INJ IV (01:19)
[2018-12-09] MEDS: ACCU-CHEK XX (01:19)
[2018-12-09] MEDS: PANTOPRAZOLE (EC) 40 MG TAB PO (06:02)
[2018-12-09] MEDS: HYDROCODONE/APAP (5/325) TAB PO ×3 (06:02→14:06)
[2018-12-09] MEDS: GUAIFENESIN/CODEINE 5ML CUP PO (06:02)
[2018-12-09] MEDS: INSULIN ASPART [NOVOLOG] 3 ML PEN SC ×7 (07:51→21:00)
[2018-12-09] MEDS: SEVELAMER CARBONATE 0.8 GM PKT PO ×3 (07:58→17:30)
[2018-12-09] MEDS: INSULIN GLARGINE [LANTus] (100 UNITS/ML) SYG SC (08:03)
[2018-12-09] MEDS: CEFEPIME 1GM/50 ML (PMX) 50 ML IVPB (08:23)
[2018-12-09] MEDS: DOCUSATE SODIUM 100 MG CAP PO (08:23)
[2018-12-09] MEDS: GABAPENTIN 300 MG CAP PO ×2 (08:24→13:04)
[2018-12-09] MEDS: MULTIVIT/CA CARB/B CMPLX/FA TAB PO (08:24)
[2018-12-09] MEDS: APIXABAN 5 MG TABLET PO (08:24)
[2018-12-09] MEDS: DICLOFENAC SODIUM 1% GEL 100 GM TUBE TP ×2 (08:24→21:00)
[2018-12-09] MEDS: BUSPIRONE 10 MG TAB PO ×2 (08:24→13:06)
[2018-12-09] MEDS: FUROSEMIDE 20 MG TAB PO (08:26)
[2018-12-09] MEDS: METOPROLOL 25 MG TAB PO ×2 (08:26→21:00)
[2018-12-09] MEDS: ISOSORBIDE DINITRATE 10 MG TAB PO ×3 (08:26→13:11)
[2018-12-09] MEDS: DILTIAZEM (CD) 120 MG CAP PO (08:26)
[2018-12-09 10:04] LABS: PROCALCITONIN 0.61 ng/mL (0.00-0.10)
[2018-12-09] MEDS: SENNA TAB PO (10:11)
[2018-12-09] MEDS: HYDROCORTISONE 0.5% 28.35 GM CR TOP (15:54)
[2018-12-09] MEDS: ALBUTEROL/IPRATROPIUM (NEB) 3 ML AMP HHN (17:06)
[2018-12-09] MEDS: FUROSEMIDE 40 MG TAB PO (17:39)
[2018-12-10] MEDS: LORAZEPAM 2 MG INJ IV ×2 (00:03→18:48)
[2018-12-10] MEDS: ISOSORBIDE DINITRATE 10 MG TAB PO ×4 (00:23→21:00)
[2018-12-10] MEDS: FLUCONAZOLE 200 MG TAB PO (00:24)
[2018-12-10] MEDS: BUSPIRONE 10 MG TAB PO ×4 (00:24→20:59)
[2018-12-10] MEDS: GABAPENTIN 300 MG CAP PO ×4 (00:24→20:59)
[2018-12-10] MEDS: APIXABAN 5 MG TABLET PO ×3 (00:25→21:01)
[2018-12-10] MEDS: ZOLPIDEM 5 MG TAB PO (00:25)
[2018-12-10] MEDS: HEPARIN 1000 UNITS/ML 10 ML INJ CATHETER (00:47)
[2018-12-10] MEDS: ACCU-CHEK XX (02:00)
[2018-12-10] MEDS: GUAIFENESIN/CODEINE 5ML CUP PO (04:20)
[2018-12-10 05:42] LABS: ADD MAN DIFF? NO
[2018-12-10 05:48] LABS: BASOPHILS % 0.4 % (0.0-2.0); EOSINOPHILS # 0.2 10^3/ul (0.0-0.5); EOSINOPHILS % 3.2 % (0.0-7.0); HEMATOCRIT 34.3 % (37.0-47.0); HEMOGLOBIN 10.6 g/dl (12.0-16.0); LYMPHOCYTES # 0.8 10^3/ul (0.8-2.9); LYMPHOCYTES % 13.7 % (15.0-51.0); MEAN CORPUSCULAR HEMOGLOBIN 33.4 pg (29.0-33.0); MEAN CORPUSCULAR HGB CONC 30.9 g/dl (32.0-37.0); MEAN CORPUSCULAR VOLUME 108.2 fl (82.0-101.0); MEAN PLATELET VOLUME 10.8 fl (7.4-10.4); MONOCYTE # 0.7 10^3/ul (0.3-0.9); MONOCYTES % 11.9 % (0.0-11.0); NEUTROPHIL # 3.9 10^3/ul (1.6-7.5); NEUTROPHILS % 69.7 % (39.0-77.0); PLATELET COUNT 277 10^3/UL (140-415); RED BLOOD COUNT 3.17 10^6/ul (4.20-5.40); RED CELL DISTRIBUTION WIDTH 17.3 % (11.5-14.5)
[2018-12-10 05:48] LABS: WHITE BLOOD COUNT 5.6 10^3/ul (4.8-10.8)
[2018-12-10] MEDS: PANTOPRAZOLE (EC) 40 MG TAB PO (06:10)
[2018-12-10] MEDS: FUROSEMIDE 40 MG TAB PO (06:11)
[2018-12-10 06:22] LABS: ANION GAP 14 (5-13); BLOOD UREA NITROGEN 47 mg/dl (7-20); CALCIUM 9.7 mg/dl (8.4-10.2); CARBON DIOXIDE 30 mmol/L (21-31); CHLORIDE 97 mmol/L (97-110); CREATININE 4.92 mg/dl (0.44-1.00); Estimated GFR 9 mL/min (>60); GLUCOSE 146 mg/dl (70-220); MAGNESIUM 2.3 mg/dl (1.7-2.5); POTASSIUM 4.8 mmol/L (3.5-5.1); SODIUM 141 mmol/L (135-144)
[2018-12-10] MEDS: INSULIN ASPART [NOVOLOG] 3 ML PEN SC ×7 (06:35→21:04)
[2018-12-10] MEDS: SEVELAMER CARBONATE 0.8 GM PKT PO ×3 (07:55→17:08)
[2018-12-10] MEDS: DOCUSATE SODIUM 100 MG CAP PO (08:56)
[2018-12-10] MEDS: METOPROLOL 25 MG TAB PO ×2 (08:57→21:00)
[2018-12-10] MEDS: CEFEPIME 1GM/50 ML (PMX) 50 ML IVPB (08:57)
[2018-12-10] MEDS: MULTIVIT/CA CARB/B CMPLX/FA TAB PO (08:57)
[2018-12-10] MEDS: DILTIAZEM (CD) 120 MG CAP PO (08:58)
[2018-12-10] MEDS: DICLOFENAC SODIUM 1% GEL 100 GM TUBE TP ×2 (09:02→21:02)
[2018-12-10] MEDS: HYDROCODONE/APAP (5/325) TAB PO ×2 (11:20→17:08)
[2018-12-10] MEDS: INSULIN GLARGINE [LANTus] (100 UNITS/ML) SYG SC (11:26)
[2018-12-10] MEDS: ALBUTEROL/IPRATROPIUM (NEB) 3 ML AMP HHN (11:42)
[2018-12-10] MEDS: EPOETIN ALFA-EPBX (ESRD) 4,000 UNIT/ML VIAL SC (17:00)
[2018-12-10] MEDS: BUMETANIDE 1 MG TAB PO (17:08)
[2018-12-10] MEDS ORDERED: morphine 2 MG INJ IV (18:00)
[2018-12-10] MEDS: CLOTRIMAZOLE 1% 45 GM VAG CR VAG (21:01)
[2018-12-10] MEDS: SENNA TAB PO (21:48)
[2018-12-11] MEDS: GUAIFENESIN/CODEINE 5ML CUP PO (00:10)
[2018-12-11] MEDS: HYDROCODONE/APAP (5/325) TAB PO ×3 (00:10→21:58)
[2018-12-11] MEDS: ACCU-CHEK XX (02:05)
[2018-12-11] MEDS: ALBUTEROL/IPRATROPIUM (NEB) 3 ML AMP HHN (03:20)
[2018-12-11 05:43] LABS: ADD MAN DIFF? NO
[2018-12-11 05:48] LABS: BASOPHILS % 0.4 % (0.0-2.0); EOSINOPHILS # 0.2 10^3/ul (0.0-0.5); EOSINOPHILS % 3.7 % (0.0-7.0); HEMOGLOBIN 9.6 g/dl (12.0-16.0); LYMPHOCYTES # 0.9 10^3/ul (0.8-2.9); LYMPHOCYTES % 19.8 % (15.0-51.0); MEAN CORPUSCULAR HEMOGLOBIN 33.8 pg (29.0-33.0); MEAN CORPUSCULAR VOLUME 109.2 fl (82.0-101.0); MEAN PLATELET VOLUME 10.8 fl (7.4-10.4); MONOCYTE # 0.6 10^3/ul (0.3-0.9); MONOCYTES % 12.4 % (0.0-11.0); NEUTROPHIL # 2.9 10^3/ul (1.6-7.5); NEUTROPHILS % 63.3 % (39.0-77.0); PLATELET COUNT 223 10^3/UL (140-415); RED BLOOD COUNT 2.84 10^6/ul (4.20-5.40); RED CELL DISTRIBUTION WIDTH 17.5 % (11.5-14.5)
[2018-12-11 05:48] LABS: WHITE BLOOD COUNT 4.6 10^3/ul (4.8-10.8)
[2018-12-11 06:26] LABS: ANION GAP 13 (5-13); BLOOD UREA NITROGEN 67 mg/dl (7-20); CALCIUM 9.2 mg/dl (8.4-10.2); CARBON DIOXIDE 28 mmol/L (21-31); CHLORIDE 97 mmol/L (97-110); CREATININE 6.54 mg/dl (0.44-1.00); Estimated GFR 6 mL/min (>60); GLUCOSE 227 mg/dl (70-220); SODIUM 138 mmol/L (135-144)
[2018-12-11] MEDS: PANTOPRAZOLE (EC) 40 MG TAB PO (06:38)
[2018-12-11] MEDS: BUMETANIDE 1 MG TAB PO ×2 (06:38→17:33)
[2018-12-11] MEDS: INSULIN ASPART [NOVOLOG] 3 ML PEN SC ×7 (06:51→21:49)
[2018-12-11] MEDS: MULTIVIT/CA CARB/B CMPLX/FA TAB PO (08:02)
[2018-12-11] MEDS: DOCUSATE SODIUM 100 MG CAP PO (08:02)
[2018-12-11] MEDS: SEVELAMER CARBONATE 0.8 GM PKT PO ×3 (08:02→17:34)
[2018-12-11] MEDS: CEFEPIME 1GM/50 ML (PMX) 50 ML IVPB (08:02)
[2018-12-11] MEDS: BUSPIRONE 10 MG TAB PO ×3 (08:02→20:52)
[2018-12-11] MEDS: DILTIAZEM (CD) 120 MG CAP PO ×2 (08:03→10:20)
[2018-12-11] MEDS: ISOSORBIDE DINITRATE 10 MG TAB PO ×4 (08:03→20:50)
[2018-12-11] MEDS: METOPROLOL 25 MG TAB PO ×2 (08:03→20:50)
[2018-12-11] MEDS: APIXABAN 5 MG TABLET PO ×2 (08:03→20:52)
[2018-12-11] MEDS: DICLOFENAC SODIUM 1% GEL 100 GM TUBE TP ×2 (08:05→22:00)
[2018-12-11] MEDS: GABAPENTIN 300 MG CAP PO ×3 (08:15→20:52)
[2018-12-11] MEDS: CLOTRIMAZOLE 1% 45 GM VAG CR VAG ×2 (08:15→20:52)
[2018-12-11] MEDS: LORAZEPAM 2 MG INJ IV ×2 (08:47→21:58)
[2018-12-11] MEDS: INSULIN GLARGINE [LANTus] (100 UNITS/ML) SYG SC (08:50)
[2018-12-11] MEDS: ACETAMINOPHEN 325 MG TAB PO (18:05)
[2018-12-11] MEDS: HEPARIN 1000 UNITS/ML 10 ML INJ CATHETER (20:43)
[2018-12-11] MEDS: HYDROCORTISONE 0.5% 28.35 GM CR TOP (20:52)
[2018-12-12] MEDS: ACCU-CHEK XX (01:25)
[2018-12-12] MEDS: PANTOPRAZOLE (EC) 40 MG TAB PO (06:06)
[2018-12-12] MEDS: BUMETANIDE 1 MG TAB PO ×2 (06:06→17:45)
[2018-12-12 06:16] LABS: ADD MAN DIFF? NO
[2018-12-12 06:23] LABS: WHITE BLOOD COUNT 4.4 10^3/ul (4.8-10.8)
[2018-12-12 06:23] LABS: BASOPHILS % 0.5 % (0.0-2.0); EOSINOPHILS # 0.1 10^3/ul (0.0-0.5); EOSINOPHILS % 2.7 % (0.0-7.0); HEMATOCRIT 31.3 % (37.0-47.0); HEMOGLOBIN 9.6 g/dl (12.0-16.0); LYMPHOCYTES # 0.8 10^3/ul (0.8-2.9); LYMPHOCYTES % 17.8 % (15.0-51.0); MEAN CORPUSCULAR HEMOGLOBIN 34.3 pg (29.0-33.0); MEAN CORPUSCULAR HGB CONC 30.7 g/dl (32.0-37.0); MEAN CORPUSCULAR VOLUME 111.8 fl (82.0-101.0); MEAN PLATELET VOLUME 11.3 fl (7.4-10.4); MONOCYTE # 0.6 10^3/ul (0.3-0.9); NEUTROPHIL # 2.8 10^3/ul (1.6-7.5); NEUTROPHILS % 64.3 % (39.0-77.0); PLATELET COUNT 228 10^3/UL (140-415); RED CELL DISTRIBUTION WIDTH 17.8 % (11.5-14.5)
[2018-12-12 06:55] LABS: ANION GAP 9 (5-13); BLOOD UREA NITROGEN 43 mg/dl (7-20); CALCIUM 9.2 mg/dl (8.4-10.2); CARBON DIOXIDE 26 mmol/L (21-31); CHLORIDE 103 mmol/L (97-110); CREATININE 4.92 mg/dl (0.44-1.00); Estimated GFR 9 mL/min (>60); GLUCOSE 302 mg/dl (70-220); POTASSIUM 5.5 mmol/L (3.5-5.1); SODIUM 138 mmol/L (135-144)
[2018-12-12] MEDS: SEVELAMER CARBONATE 0.8 GM PKT PO ×3 (08:00→17:45)
[2018-12-12] MEDS: INSULIN ASPART [NOVOLOG] 3 ML PEN SC ×7 (08:00→21:00)
[2018-12-12] MEDS: GUAIFENESIN/CODEINE 5ML CUP PO ×2 (08:16→20:32)
[2018-12-12] MEDS: HYDROCODONE/APAP (5/325) TAB PO ×3 (08:20→20:21)
[2018-12-12] MEDS: APIXABAN 5 MG TABLET PO ×2 (08:20→20:22)
[2018-12-12] MEDS: MULTIVIT/CA CARB/B CMPLX/FA TAB PO (08:20)
[2018-12-12] MEDS: GABAPENTIN 300 MG CAP PO ×3 (08:20→20:22)
[2018-12-12] MEDS: DOCUSATE SODIUM 100 MG CAP PO (08:21)
[2018-12-12] MEDS: BUSPIRONE 10 MG TAB PO ×3 (08:21→20:21)
[2018-12-12] MEDS: METOPROLOL 25 MG TAB PO ×2 (08:22→20:23)
[2018-12-12] MEDS: INSULIN GLARGINE [LANTus] (100 UNITS/ML) SYG SC (08:28)
[2018-12-12] MEDS: DILTIAZEM (CD) 120 MG CAP PO (08:44)
[2018-12-12] MEDS: ISOSORBIDE DINITRATE 10 MG TAB PO ×3 (08:44→21:00)
[2018-12-12] MEDS: DICLOFENAC SODIUM 1% GEL 100 GM TUBE TP ×2 (09:03→20:23)
[2018-12-12] MEDS: CLOTRIMAZOLE 1% 45 GM VAG CR VAG ×2 (09:03→20:24)
[2018-12-12] MEDS: LORAZEPAM 2 MG INJ IV ×2 (09:13→23:05)
[2018-12-12] MEDS ORDERED: ALBUTEROL 0.083% (NEB) 2.5 MG/3 ML AMP HHN (11:00)
[2018-12-12] MEDS: REGADENOSON 0.4 MG/5 ML SYG (13:30)
[2018-12-12] MEDS: ACETAMINOPHEN 325 MG TAB PO (16:23)
[2018-12-12] MEDS: HEPARIN 1000 UNITS/ML 10 ML INJ CATHETER (20:15)
[2018-12-12] MEDS: EPOETIN ALFA-EPBX (ESRD) 4,000 UNIT/ML VIAL SC (20:27)
[2018-12-13] MEDS: ZOLPIDEM 5 MG TAB PO ×2 (01:05→21:13)
[2018-12-13] MEDS: ACCU-CHEK XX (02:00)
[2018-12-13] MEDS: BUMETANIDE 1 MG TAB PO ×2 (05:53→17:29)
[2018-12-13 06:00] LABS: ADD MAN DIFF? NO
[2018-12-13 06:09] LABS: WHITE BLOOD COUNT 5.5 10^3/ul (4.8-10.8)
[2018-12-13 06:09] LABS: BASOPHILS % 0.4 % (0.0-2.0); EOSINOPHILS # 0.2 10^3/ul (0.0-0.5); EOSINOPHILS % 3.3 % (0.0-7.0); HEMATOCRIT 30.8 % (37.0-47.0); HEMOGLOBIN 9.5 g/dl (12.0-16.0); LYMPHOCYTES # 0.8 10^3/ul (0.8-2.9); LYMPHOCYTES % 15.3 % (15.0-51.0); MEAN CORPUSCULAR HEMOGLOBIN 34.3 pg (29.0-33.0); MEAN CORPUSCULAR HGB CONC 30.8 g/dl (32.0-37.0); MEAN CORPUSCULAR VOLUME 111.2 fl (82.0-101.0); MEAN PLATELET VOLUME 10.9 fl (7.4-10.4); MONOCYTE # 0.6 10^3/ul (0.3-0.9); MONOCYTES % 10.9 % (0.0-11.0); NEUTROPHIL # 3.8 10^3/ul (1.6-7.5); NEUTROPHILS % 69.7 % (39.0-77.0); PLATELET COUNT 209 10^3/UL (140-415); RED BLOOD COUNT 2.77 10^6/ul (4.20-5.40); RED CELL DISTRIBUTION WIDTH 17.7 % (11.5-14.5)
[2018-12-13] MEDS: PANTOPRAZOLE (EC) 40 MG TAB PO (06:25)
[2018-12-13 06:38] LABS: ANION GAP 11 (5-13); BLOOD UREA NITROGEN 57 mg/dl (7-20); CALCIUM 9.2 mg/dl (8.4-10.2); CARBON DIOXIDE 25 mmol/L (21-31); CHLORIDE 102 mmol/L (97-110); CREATININE 6.69 mg/dl (0.44-1.00); Estimated GFR 6 mL/min (>60); GLUCOSE 158 mg/dl (70-220); POTASSIUM 5.4 mmol/L (3.5-5.1); SODIUM 138 mmol/L (135-144)
[2018-12-13] MEDS: SEVELAMER CARBONATE 0.8 GM PKT PO ×3 (07:45→17:29)
[2018-12-13] MEDS: INSULIN ASPART [NOVOLOG] 3 ML PEN SC ×7 (07:52→20:23)
[2018-12-13] MEDS: BUSPIRONE 10 MG TAB PO ×3 (08:14→20:16)
[2018-12-13] MEDS: HYDROCODONE/APAP (5/325) TAB PO ×2 (08:14→14:56)
[2018-12-13] MEDS: GABAPENTIN 300 MG CAP PO ×3 (08:14→20:17)
[2018-12-13] MEDS: MULTIVIT/CA CARB/B CMPLX/FA TAB PO (08:15)
[2018-12-13] MEDS: GUAIFENESIN/CODEINE 5ML CUP PO (08:15)
[2018-12-13] MEDS: DOCUSATE SODIUM 100 MG CAP PO (08:16)
[2018-12-13] MEDS: APIXABAN 5 MG TABLET PO ×2 (08:16→20:16)
[2018-12-13] MEDS: METOPROLOL 25 MG TAB PO ×2 (08:16→20:16)
[2018-12-13] MEDS: ISOSORBIDE DINITRATE 10 MG TAB PO ×3 (08:19→20:16)
[2018-12-13] MEDS: DILTIAZEM (CD) 120 MG CAP PO (08:20)
[2018-12-13] MEDS: INSULIN GLARGINE [LANTus] (100 UNITS/ML) SYG SC (08:21)
[2018-12-13] MEDS: DICLOFENAC SODIUM 1% GEL 100 GM TUBE TP ×2 (08:23→20:18)
[2018-12-13] MEDS: CLOTRIMAZOLE 1% 45 GM VAG CR VAG ×3 (09:00→20:17)
[2018-12-13] MEDS: ACETAMINOPHEN 325 MG TAB PO (09:51)
[2018-12-13] MEDS: ONDANSETRON 4 MG INJ IV (10:46)
[2018-12-13] MEDS: morphine 2 MG INJ IV ×2 (10:46→20:20)
[2018-12-13] MEDS: MENTHOL/METH SALICYLATE 30 GM OINT TOP ×2 (12:44→20:17)
[2018-12-13] MEDS: LORAZEPAM 2 MG INJ IV (15:29)
[2018-12-13] MEDS: SODIUM POLYSTYRENE 15 GM KIT (POWDER + SORBITOL) PO (17:30)
[2018-12-13] MEDS: SENNA TAB PO (23:28)
[2018-12-14] MEDS: LORAZEPAM 2 MG INJ IV ×3 (01:25→17:46)
[2018-12-14] MEDS: ACCU-CHEK XX (01:44)
[2018-12-14] MEDS: PANTOPRAZOLE (EC) 40 MG TAB PO (06:20)
[2018-12-14] MEDS: BUMETANIDE 1 MG TAB PO ×2 (06:20→17:39)
[2018-12-14 06:45] LABS: ALANINE AMINOTRANSFERASE 24 IU/L (13-69); ALBUMIN 3.6 g/dl (3.3-4.9); ALBUMIN/GLOBULIN RATIO 1.12; ALKALINE PHOSPHATASE 120 IU/L (42-121); ANION GAP 16 (5-13); ASPARTATE AMINO TRANSFERASE 23 IU/L (15-46); BILIRUBIN,INDIRECT 0.1 mg/dl (0-1.1); BILIRUBIN,TOTAL 0.1 mg/dl (0.2-1.3); BLOOD UREA NITROGEN 74 mg/dl (7-20); CALCIUM 8.6 mg/dl (8.4-10.2); CARBON DIOXIDE 24 mmol/L (21-31); CHLORIDE 101 mmol/L (97-110); CREATININE 7.72 mg/dl (0.44-1.00); Estimated GFR 5 mL/min (>60); GLUCOSE 103 mg/dl (70-220); SODIUM 141 mmol/L (135-144); TOTAL PROTEIN 6.8 g/dl (6.1-8.1)
[2018-12-14] MEDS: morphine 2 MG INJ IV ×2 (06:54→20:55)
[2018-12-14] MEDS: GUAIFENESIN/CODEINE 5ML CUP PO ×2 (06:54→23:42)
[2018-12-14 06:58] LABS: POTASSIUM 6.1 mmol/L (3.5-5.1)
[2018-12-14] MEDS: INSULIN ASPART [NOVOLOG] 3 ML PEN SC ×7 (07:00→22:57)
[2018-12-14] MEDS: SEVELAMER CARBONATE 0.8 GM PKT PO ×3 (07:43→17:39)
[2018-12-14] MEDS: INSULIN GLARGINE [LANTus] (100 UNITS/ML) SYG SC (07:50)
[2018-12-14] MEDS: GABAPENTIN 300 MG CAP PO ×3 (08:54→20:54)
[2018-12-14] MEDS: BUSPIRONE 10 MG TAB PO ×3 (08:54→20:54)
[2018-12-14] MEDS: DOCUSATE SODIUM 100 MG CAP PO (08:54)
[2018-12-14] MEDS: APIXABAN 5 MG TABLET PO (08:54)
[2018-12-14] MEDS: DILTIAZEM (CD) 120 MG CAP PO (08:54)
[2018-12-14] MEDS: MULTIVIT/CA CARB/B CMPLX/FA TAB PO (08:54)
[2018-12-14] MEDS: ISOSORBIDE DINITRATE 10 MG TAB PO ×3 (08:55→21:00)
[2018-12-14] MEDS: METOPROLOL 25 MG TAB PO ×2 (08:55→21:00)
[2018-12-14] MEDS: MENTHOL/METH SALICYLATE 30 GM OINT TOP ×3 (08:57→21:55)
[2018-12-14] MEDS: DICLOFENAC SODIUM 1% GEL 100 GM TUBE TP ×2 (08:57→21:55)
[2018-12-14] MEDS: CLOTRIMAZOLE 1% 45 GM VAG CR VAG ×3 (08:59→21:55)
[2018-12-14] MEDS: HYDROCODONE/APAP (5/325) TAB PO ×3 (11:00→23:43)
[2018-12-14] MEDS: HEPARIN 1000 UNITS/ML 10 ML INJ CATHETER (17:37)
[2018-12-14] MEDS: ENOXAPARIN 100 MG/ML SYG SC (21:00)
[2018-12-14] MEDS: ZOLPIDEM 5 MG TAB PO (21:13)
[2018-12-15] MEDS: ACCU-CHEK XX (02:00)
[2018-12-15] MEDS: morphine 2 MG INJ IV ×2 (04:08→13:38)
[2018-12-15 05:38] LABS: ADD MAN DIFF? NO
[2018-12-15 06:05] LABS: BASOPHILS % 0.4 % (0.0-2.0); EOSINOPHILS # 0.2 10^3/ul (0.0-0.5); EOSINOPHILS % 2.3 % (0.0-7.0); HEMOGLOBIN 10.7 g/dl (12.0-16.0); LYMPHOCYTES # 0.8 10^3/ul (0.8-2.9); LYMPHOCYTES % 11.4 % (15.0-51.0); MEAN CORPUSCULAR HEMOGLOBIN 34.2 pg (29.0-33.0); MEAN CORPUSCULAR HGB CONC 31.5 g/dl (32.0-37.0); MEAN CORPUSCULAR VOLUME 108.6 fl (82.0-101.0); MEAN PLATELET VOLUME 11.5 fl (7.4-10.4); MONOCYTE # 0.5 10^3/ul (0.3-0.9); MONOCYTES % 7.3 % (0.0-11.0); NEUTROPHIL # 5.5 10^3/ul (1.6-7.5); NEUTROPHILS % 78.3 % (39.0-77.0); PLATELET COUNT 186 10^3/UL (140-415); RED BLOOD COUNT 3.13 10^6/ul (4.20-5.40); RED CELL DISTRIBUTION WIDTH 17.6 % (11.5-14.5)
[2018-12-15 06:15] LABS: INR 1.03; PROTIME 13.6 Sec (11.9-14.9); PT RATIO 1.1
[2018-12-15] MEDS: BUMETANIDE 1 MG TAB PO ×2 (06:17→17:30)
[2018-12-15] MEDS: PANTOPRAZOLE (EC) 40 MG TAB PO (06:17)
[2018-12-15 06:23] LABS: ANION GAP 14 (5-13); BLOOD UREA NITROGEN 47 mg/dl (7-20); CALCIUM 8.9 mg/dl (8.4-10.2); CARBON DIOXIDE 27 mmol/L (21-31); CHLORIDE 97 mmol/L (97-110); CREATININE 5.19 mg/dl (0.44-1.00); Estimated GFR 8 mL/min (>60); GLUCOSE 89 mg/dl (70-220); POTASSIUM 4.7 mmol/L (3.5-5.1); SODIUM 138 mmol/L (135-144)
[2018-12-15] MEDS: INSULIN ASPART [NOVOLOG] 3 ML PEN SC ×6 (08:23→17:56)
[2018-12-15] MEDS: DICLOFENAC SODIUM 1% GEL 100 GM TUBE TP (08:27)
[2018-12-15] MEDS: MENTHOL/METH SALICYLATE 30 GM OINT TOP ×2 (08:27→13:15)
[2018-12-15] MEDS: SEVELAMER CARBONATE 0.8 GM PKT PO ×3 (08:27→17:30)
[2018-12-15] MEDS: BUSPIRONE 10 MG TAB PO ×2 (08:28→13:14)
[2018-12-15] MEDS: MULTIVIT/CA CARB/B CMPLX/FA TAB PO (08:28)
[2018-12-15] MEDS: GABAPENTIN 300 MG CAP PO ×2 (08:28→13:12)
[2018-12-15] MEDS: DILTIAZEM (CD) 120 MG CAP PO ×2 (08:28→08:53)
[2018-12-15] MEDS: DOCUSATE SODIUM 100 MG CAP PO (08:29)
[2018-12-15] MEDS: METOPROLOL 25 MG TAB PO (08:29)
[2018-12-15] MEDS: ISOSORBIDE DINITRATE 10 MG TAB PO ×3 (08:29→13:00)
[2018-12-15] MEDS: INSULIN GLARGINE [LANTus] (100 UNITS/ML) SYG SC (08:43)
[2018-12-15] MEDS: CLOTRIMAZOLE 1% 45 GM VAG CR VAG (08:50)
[2018-12-15] MEDS: HYDROCODONE/APAP (5/325) TAB PO (08:55)
[2018-12-15] MEDS: LORAZEPAM 2 MG INJ IV (10:08)
[2018-12-15] MEDS: ACETAMINOPHEN 325 MG TAB PO (10:09)
[2018-12-15] MEDS: GUAIFENESIN/CODEINE 5ML CUP PO (16:20)
[2018-12-15] MEDS: EPOETIN ALFA-EPBX (ESRD) 4,000 UNIT/ML VIAL SC (17:32)
[2018-12-15] MEDS ORDERED: ENOXAPARIN 80 MG/0.8 ML SYG SC (21:00)
== END 2018-12-15 17:53 | disposition home health service (06) | DRG 193 ==
LOC: E/R 14:31 → 6WM 17:42
PROVIDERS: Internal Medicine
PROC: 5A1D70Z Performance of Urinary Filtration, Intermittent, Less than 6 Hours Per Day (ICD-10-PCS; principal; 2018-12-01)
DX: J18.9 Pneumonia, unspecified organism (principal); N18.6 End stage renal disease; I50.33 Acute on chronic diastolic (congestive) heart failure; I13.2 Hypertensive heart and chronic kidney disease with heart failure and with stage 5 chronic kidney disease, or end stage renal disease; E11.621 Type 2 diabetes mellitus with foot ulcer; E11.40 Type 2 diabetes mellitus with diabetic neuropathy, unspecified; E11.22 Type 2 diabetes mellitus with diabetic chronic kidney disease; E87.5 Hyperkalemia; E66.01 Morbid (severe) obesity due to excess calories; F41.9 Anxiety disorder, unspecified; I25.10 Atherosclerotic heart disease of native coronary artery without angina pectoris; D63.1 Anemia in chronic kidney disease; I48.91 Unspecified atrial fibrillation; L97.519 Non-pressure chronic ulcer of other part of right foot with unspecified severity; E11.42 Type 2 diabetes mellitus with diabetic polyneuropathy; E11.21 Type 2 diabetes mellitus with diabetic nephropathy; E11.319 Type 2 diabetes mellitus with unspecified diabetic retinopathy without macular edema; E11.51 Type 2 diabetes mellitus with diabetic peripheral angiopathy without gangrene; R79.89 Other specified abnormal findings of blood chemistry; Z68.39 Body mass index [BMI] 39.0-39.9, adult; J44.9 Chronic obstructive pulmonary disease, unspecified; Z89.421 Acquired absence of other right toe(s); Z99.2 Dependence on renal dialysis
CPT/HCPCS: 36415; 71045; 71250; 73630; 78452; 80048; 80053; 80061; 80202; 82550; 82553; 82947; 82962; 83036; 83605; 83735; 84100; 84145; 84484; 85018; 85025; 85610; 85730; 87040-91; 87070; 87206; 87275; 87276; 87279; 87280; 87340; 87400; 90935; 93005; 93017; 93306; 93931; 93970; 94640; 94664; 96374; 96375; 97110; 97116; 97161; 99285-25